=== PATIENT | male | born 1965 | race Caucasian/White ===

== ENCOUNTER 2016-09-22 23:00 | Inpatient (IN) | payer OTHER ==
[~2016-09-22] VITALS: Ht 190.5 cm; Wt 68.7 kg
[~2016-09-22 23:00] MED LIST: BENZ2 PO; HALO10 PO; QUET100 PO; SERT100 PO; SERT50 PO
[2016-09-22 23:11] VITALS: BP 126/83; PULSE 68; RESP 16; TEMP 98.5; O2SAT 99
[2016-09-22 23:31] LABS: AUTOMATED NEUTROPHIL # 7.2 TH/MM3 (1.8-7.7); BASOPHIL % 0.5 % (0.0-2.0); EOSINOPHIL # 0.1 TH/MM3 (0-0.4); EOSINOPHIL % 1.3 % (0.0-4.0); HEMATOCRIT 44.1 % (39.0-51.0); HEMO FLAGS DIFF FINAL; LYMPH % 19.3 % (9.0-44.0); LYMPHOCYTE # 1.9 TH/MM3 (1.0-4.8); MEAN CELL VOLUME 88.9 FL (80.0-100.0); MEAN CORPUSCULAR HEMOGLOBIN 30.4 PG (27.0-34.0); MEAN CORPUSCULAR HGB CONC 34.2 % (32.0-36.0); MONO % 6.7 % (0.0-8.0); NEUT % 72.2 % (16.0-70.0); PLATELET COUNT 244 TH/MM3 (150-450); RED BLOOD COUNT 4.96 MIL/MM3 (4.50-5.90); RED CELL DISTRIBUTION WIDTH 13.5 % (11.6-17.2)
[2016-09-22 23:47] LABS: AMPHETAMINE, URINE NEG (NEG); BARBITURATES, URINE NEG (NEG); COCAINE, URINE POS (NEG)
--- NOTE | 2016-09-22 23:47 | PD ---
HPI Chief Complaint: Psychiatric Symptoms Time Seen by Provider: 23:07 Travel History International Travel<30 days: No Contact w/Intl Traveler<30days: No Traveled to known affect area: No History of Present Illness HPI This is a 51-year-old male who has a history of schizophrenia and bipolar disorder who presents to the emergency department brought in under a Mejia act because he expressed suicidal ideation to the police. He reportedly told them that he wanted to kill himself and that he would cut his wrists. He says in the past he's cut his wrists horizontally but this time he would cut them vertically. He says he has nothing to live for and he's wanted to . He supposed to be on psychiatric medications but hasn't taken them in 3 weeks. He acknowledges using marijuana and cocaine today. PFSH Past Medical History Arthritis: No Asthma: No Autoimmune Disease: No Blood Disorders: No Bipolar Disorder: Yes Anxiety: Yes Depression: Yes Heart Rhythm Problems: No High Cholesterol: Yes (NON COMPLIANT ON MEDS) Chemotherapy: Yes Chest Pain: No Congestive Heart Failure: No Cirrhosis: Yes COPD: Yes Cerebrovascular Accident: No Diminished Hearing: No Endocrine: No Gastrointestinal Disorders: No Genitourinary: No Hypertension: No Immune Disorder: No Implanted Vascular Access Dvce: No Musculoskeletal: No Neurologic: Yes Respiratory: Yes Immunizations Current: Yes Migraines: No Myocardial Infarction: No Schizophrenia: Yes Sleep Apnea: No Influenza Vaccination: No Past Surgical History Abdominal Surgery: No Cardiac Surgery: No Ear Surgery: No Endocrine Surgery: No Eye Surgery: No Genitourinary Surgery: No Neurologic Surgery: No Oral Surgery: No Thoracic Surgery: No Tonsillectomy: Yes Other Surgery: Yes (SKIN GRAFTS TO RT. 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)) Social History Alcohol Use: Yes (WEEKLY ) Tobacco Use: Yes (1 ppd) Substance Use: Yes (crack, marrijana) Allergies-Medications (Allergen,Severity, Reaction): Coded Allergies: Aspirin (Verified Allergy, Severe, Rash, 09/22/16) Codeine (Verified Allergy, Severe, RASH, 09/22/16) Contrast Media (Verified Allergy, Severe, HIVES, 09/22/16) Demerol (Verified Allergy, Severe, RASH, 09/22/16) Motrin (Verified Allergy, Severe, RASH, 09/22/16) Penicillin (Verified Allergy, Severe, RASH, 09/22/16) Iodine (Unverified Allergy, Intermediate, Rash, 09/22/16) Darvocet-N 100 (Verified Allergy, Unknown, 09/22/16) *MDRO Multi-Drug Resistant Organism (Verified Adverse Reaction, Unknown, ) MRSA arm wound 08/2015 Reported Meds & Prescriptions Reported Meds & Active Scripts Active No Active Prescriptions or Reported Medications Review of Systems Except as stated in HPI: all other systems reviewed are Neg Physical Exam Narrative GENERAL: Thin, disheveled SKIN: Focused skin assessment warm and dry. HEAD: Atraumatic. Normocephalic. EYES: Pupils equal and round. No injection or drainage. ENT: Moist mucous membranes NECK: Trachea midline. CARDIOVASCULAR: Regular rate and rhythm. No murmur appreciated. RESPIRATORY: Clear to auscultation. Breath sounds equal bilaterally. GASTROINTESTINAL: Abdomen soft, non-tender, nondistended. MUSCULOSKELETAL: No obvious deformities. NEUROLOGICAL: Awake and alert. No obvious cranial nerve deficits. Moving all extremities. PSYCHIATRIC: Appropriate mood and affect; insight and judgment normal. Data Data Last Documented VS Vital Signs Date Time Temp Pulse Resp B/P Pulse Ox O2 Delivery O2 Flow Rate FiO2 09/22/16 23:11 98.5 68 16 126/83 99 Orders Complete Blood Count With Diff (09/22/16 23:08) Comprehensive Metabolic Panel (09/22/16 23:08) Drug Screen, Random Urine (09/22/16 23:08) Alcohol (Ethanol) (09/22/16 23:08) Labs Laboratory Tests Test 09/22/16 09/22/16 23:19 23:27 White Blood Count 10.0 TH/MM3 Red Blood Count 4.96 MIL/MM3 Hemoglobin 15.1 GM/DL Hematocrit 44.1 % Mean Corpuscular Volume 88.9 FL Mean Corpuscular Hemoglobin 30.4 PG Mean Corpuscular Hemoglobin 34.2 % Concent Red Cell Distribution Width 13.5 % Platelet Count 244 TH/MM3 Mean Platelet Volume 7.1 FL Neutrophils (%) (Auto) 72.2 % Lymphocytes (%) (Auto) 19.3 % Monocytes (%) (Auto) 6.7 % Eosinophils (%) (Auto) 1.3 % Basophils (%) (Auto) 0.5 % Neutrophils # (Auto) 7.2 TH/MM3 Lymphocytes # (Auto) 1.9 TH/MM3 Monocytes # (Auto) 0.7 TH/MM3 Eosinophils # (Auto) 0.1 TH/MM3 Basophils # (Auto) 0.0 TH/MM3 CBC Comment DIFF FINAL Differential Comment Sodium Level 141 MEQ/L Potassium Level 4.0 MEQ/L Chloride Level 106 MEQ/L Carbon Dioxide Level 28.8 MEQ/L Anion Gap 6 MEQ/L Blood Urea Nitrogen 20 MG/DL Creatinine 1.05 MG/DL Estimat Glomerular Filtration 74 ML/MIN Rate Random Glucose 88 MG/DL Calcium Level 8.9 MG/DL Total Bilirubin 0.3 MG/DL Aspartate Amino Transf 21 U/L (AST/SGOT) Alanine Aminotransferase 18 U/L (ALT/SGPT) Alkaline Phosphatase 107 U/L Total Protein 6.9 GM/DL Albumin 3.9 GM/DL Ethyl Alcohol Level LESS THAN 3 MG/DL Urine Opiates Screen NEG Urine Barbiturates Screen NEG Urine Amphetamines Screen NEG Urine Benzodiazepines Screen NEG Urine Cocaine Screen POS Urine Cannabinoids Screen POS MDM Medical Decision Making Medical Screen Exam Complete: Yes Emergency Medical Condition: Yes Interpretation(s) No leukocytosis Electrolytes are reassuring Urine drug screen is positive for cocaine and cannabinoid Alcohol is negative Differential Diagnosis Depression, bipolar disorder, schizoaffective disorder, schizophrenia, substance induced mood disorder Narrative Course This is a 51-year-old male who presents to the emergency department with depression. He reportedly wants to slit his wrists and kill himself. He's been hospitalized here in the past in the setting of bipolar disorder. He has no acute medical complaints. Labs are all reassuring. Patient was cleared for psychiatric evaluation. Scripts No Active Prescriptions or Reported Meds Jacque Santiago MD Sep 22, 2016 23:47
[2016-09-22 23:53] LABS: ALT (GPT) 18 U/L (12-78); ANION GAP 6 MEQ/L (5-15); AST (GOT) 21 U/L (15-37); BICARBONATE 28.8 MEQ/L (21.0-32.0); BLOOD UREA NITROGEN 20 MG/DL (7-18); CHLORIDE 106 MEQ/L (98-107); GLOMERULAR FILTRATION RATE 74 ML/MIN (>89); SODIUM (NA) 141 MEQ/L (136-145)
[2016-09-22 23:56] LABS: ALKALINE PHOSPHATASE 107 U/L (45-117); TOTAL BILIRUBIN ADULT 0.3 MG/DL (0.2-1.0)
[2016-09-23 03:48] VITALS: BP 120/82; PULSE 78; RESP 18; O2SAT 95
[2016-09-23 06:19] VITALS: BP 114/69; PULSE 70; RESP 18; O2SAT 97
[2016-09-23 11:00] VITALS: BP 98/60; PULSE 73; RESP 18
--- NOTE | 2016-09-23 14:14 | PD ---
Physical Exam Date Seen by Provider: Sep 23, 2016 Time Seen by Provider: 14:12 Narrative I was asked to see this 51-year-old male in J pod for reports of "abscesses" under his left axilla and on his right dorsal forearm. Patient has history of MRSA in the past treated with clindamycin and Bactrim DS. Patient states that he been present now for several weeks. He states the left axilla area is tender, and has occasional drainage. He denies fever, chills or other symptoms. Patient has a history of MRSA, allergies to aspirin, codeine, cough rest media, Darvocet, Demerol, iodine, Motrin, and penicillin. Data Data Last Documented VS Vital Signs Date Time Temp Pulse Resp B/P Pulse Ox O2 Delivery O2 Flow Rate FiO2 09/23/16 11:00 73 18 98/60 Room Air 09/23/16 06:19 97 09/22/16 23:11 98.5 Orders Complete Blood Count With Diff (09/22/16 23:08) Comprehensive Metabolic Panel (09/22/16 23:08) Drug Screen, Random Urine (09/22/16 23:08) Alcohol (Ethanol) (09/22/16 23:08) Psych Screen (09/23/16 03:43) Diet Regular Basic (09/23/16 Breakfast) Diet Regular Basic (09/23/16 Lunch) Labs Laboratory Tests Test 09/22/16 09/22/16 23:19 23:27 White Blood Count 10.0 TH/MM3 Red Blood Count 4.96 MIL/MM3 Hemoglobin 15.1 GM/DL Hematocrit 44.1 % Mean Corpuscular Volume 88.9 FL Mean Corpuscular Hemoglobin 30.4 PG Mean Corpuscular Hemoglobin 34.2 % Concent Red Cell Distribution Width 13.5 % Platelet Count 244 TH/MM3 Mean Platelet Volume 7.1 FL Neutrophils (%) (Auto) 72.2 % Lymphocytes (%) (Auto) 19.3 % Monocytes (%) (Auto) 6.7 % Eosinophils (%) (Auto) 1.3 % Basophils (%) (Auto) 0.5 % Neutrophils # (Auto) 7.2 TH/MM3 Lymphocytes # (Auto) 1.9 TH/MM3 Monocytes # (Auto) 0.7 TH/MM3 Eosinophils # (Auto) 0.1 TH/MM3 Basophils # (Auto) 0.0 TH/MM3 CBC Comment DIFF FINAL Differential Comment Sodium Level 141 MEQ/L Potassium Level 4.0 MEQ/L Chloride Level 106 MEQ/L Carbon Dioxide Level 28.8 MEQ/L Anion Gap 6 MEQ/L Blood Urea Nitrogen 20 MG/DL Creatinine 1.05 MG/DL Estimat Glomerular Filtration 74 ML/MIN Rate Random Glucose 88 MG/DL Calcium Level 8.9 MG/DL Total Bilirubin 0.3 MG/DL Aspartate Amino Transf 21 U/L (AST/SGOT) Alanine Aminotransferase 18 U/L (ALT/SGPT) Alkaline Phosphatase 107 U/L Total Protein 6.9 GM/DL Albumin 3.9 GM/DL Ethyl Alcohol Level LESS THAN 3 MG/DL Urine Opiates Screen NEG Urine Barbiturates Screen NEG Urine Amphetamines Screen NEG Urine Benzodiazepines Screen NEG Urine Cocaine Screen POS Urine Cannabinoids Screen POS MDM Medical Record Reviewed: Yes Supervised Visit with ABIGAIL: Yes Differential Diagnosis MRSA. Cellulitis. Abscesses. Lymphangitis. Narrative Course Patient is medically stable at time of exam. Patient has multiple draining abscesses under the left axilla, and 1 small superficial area on the right volar mid forearm consistent with MRSA. Patient is started on doxycycline 100 mg twice a day as well as topical Bactroban twice a day 10 days each. No drainable abscesses are noted at this time. Scripts No Active Prescriptions or Reported Meds Condition: Stable Joshua Dennis Sep 23, 2016 14:14
[2016-09-23] MEDS: DOXYCYCLINE HYCLATE 100 MG TAB PO SCH ×2 (14:35→21:00)
[2016-09-23] MEDS: MUPIROCIN 2% OINT 22 GM TUBE TOPICAL SCH ×2 (17:40→21:08)
[2016-09-23 18:55] VITALS: BP 112/66; PULSE 84; RESP 24; TEMP 98.8; O2SAT 98
[2016-09-23 21:35] VITALS: BP 120/75; PULSE 66; RESP 18; O2SAT 97
[2016-09-24] MEDS ORDERED: diphenhydrAMINE HCL 50 MG/ML VIAL IM PRN (01:00)
[2016-09-24] MEDS ORDERED: diphenhydrAMINE HCL 50 MG CAP PO PRN (01:00)
[2016-09-24] MEDS ORDERED: ALUMINUM/MAGNESIUM/SIMETH 30 ML CUP PO PRN (01:00)
[2016-09-24] MEDS ORDERED: MAGNESIUM HYDROXIDE SUSP 30 ML CUP PO PRN ×2 (01:00→17:15)
[2016-09-24] MEDS ORDERED: ACETAMINOPHEN 325 MG TAB PO PRN ×2 (01:00→17:15)
[2016-09-24 05:41] VITALS: BP 102/67; PULSE 59; RESP 20; TEMP 98; O2SAT 98
[2016-09-24] MEDS: MUPIROCIN 2% OINT 22 GM TUBE TOPICAL SCH ×2 (09:00→21:00)
[2016-09-24] MEDS: NICOTINE 21 MG/24 HR PATCH T-DERMAL SCH (09:14)
[2016-09-24] MEDS: DOXYCYCLINE HYCLATE 100 MG TAB PO SCH ×2 (09:15→22:38)
[2016-09-24 09:28] LABS: ANION GAP 6 MEQ/L (5-15); BICARBONATE 28.7 MEQ/L (21.0-32.0); BLOOD UREA NITROGEN 11 MG/DL (7-18); CHLORIDE 104 MEQ/L (98-107); GLOMERULAR FILTRATION RATE 86 ML/MIN (>89); HDL CHOLESTEROL 48.2 MG/DL (40.0-60.0); LDL CHOLESTEROL 100 MG/DL (0-99); POTASSIUM 3.9 MEQ/L (3.5-5.1); SODIUM (NA) 139 MEQ/L (136-145)
[2016-09-24 13:27] LABS: HEMOGLOBIN A1a 1.1 %; HEMOGLOBIN A1b 0.9 %; HEMOGLOBIN Ao 85.5 %; HEMOGLOBIN F 0.8 %; HEMOGLOBIN LA1C 2.1 %; HEMOGLOBIN P3 3.7 %
--- NOTE | 2016-09-24 14:17 | PD.CONS ---
HPI Service [facility] [address] Hospitalists Consult Requested By Psychiatry team Reason for Consult History of MRSA, left under arm abscess Primary Care Physician No Primary Care Physician Diagnoses: History of Present Illness Patient is a 51-year-old male with primary medical history of COPD, MRSA of the wound, schizophrenia, bipolar disorder who came in to do hospital under Mejia act secondary to suicidal ideation expressed to the safety instruction police officer. As per report, he told the police he wanted to kill himself and that he would cut his wrist. He says in the past his cuts his wrist horizontally but this time he would cut them vertically. States that he has nothing to live for and he wants to . He is now admitted to inpatient psychiatry unit for further evaluation. Consulted for medical management, left axillary abscess. Patient seen today. Reports he continues to feel like hurting himself. States that he has nothing to live for now. He plans to cut his wrist vertically upward. Confirms his previous medical history including COPD and MRSA of the wound on the same location left axillary area. Admits to doing crack cocaine, and cannabis prior to admission. Reports not daily but occasionally. He also states that he has wound on his right forearm. States that he has prescription for inhaler for his COPD but unable to refill because he can't afford it. States that he only gets short of breath with activity especially with walking. Otherwise, denies pain and discomfort. Denies chest pain, palpitations, headaches, dizziness. Denies fevers, chills, n/v/d. Review of Systems Except as stated in HPI: all other systems reviewed are Neg Past Family Social History Allergies: Coded Allergies: Aspirin (Verified Allergy, Severe, Rash, 09/22/16) Codeine (Verified Allergy, Severe, RASH, 09/22/16) Contrast Media (Verified Allergy, Severe, HIVES, 09/22/16) Demerol (Verified Allergy, Severe, RASH, 09/22/16) Motrin (Verified Allergy, Severe, RASH, 09/22/16) Penicillin (Verified Allergy, Severe, RASH, 09/22/16) Iodine (Unverified Allergy, Intermediate, Rash, 09/22/16) Darvocet-N 100 (Verified Allergy, Unknown, 09/22/16) *MDRO Multi-Drug Resistant Organism (Verified Adverse Reaction, Unknown, ) MRSA arm wound 08/2015 Past Medical History COPD MRSA of the wound Anxiety Depression Bipolar disorder Cirrhosis HLD Past Surgical History Right index finger surgery Tonsillectomy Reported Medications None Active Ordered Medications Current Medications Medications (Trade) Dose Ordered Sig/New Route Start Time Stop Time Status Last Admin (Vibratab) 100 mg Q12HR PO 09/23/16 14:15 10/03/16 21:00 09/24/16 09:15 (Bactroban 2% Oint) 1 applic Q12HR TOPICAL 09/23/16 14:15 10/03/16 14:14 09/24/16 09:00 (Atarax) 50 mg Q6H PRN PO 09/24/16 01:00 (Benadryl) 50 mg Q6H PRN PO 09/24/16 01:00 (Benadryl Inj) 50 mg Q6H PRN IM 09/24/16 01:00 (Tylenol) 650 mg Q4H PRN PO 09/24/16 01:00 (Milk Of Magnesia Liq) 30 ml DAILY PRN PO 09/24/16 01:00 (Mag-Al Plus Susp Liq) 30 ml Q6H PRN PO 09/24/16 01:00 (Habitrol 21 Mg Patch.24 Hr) 1 patch DAILY T-DERMAL 09/24/16 09:00 09/24/16 09:14 Miscellaneous Information 1 HS T-DERMAL 09/24/16 21:00 Family History Mother and father both had diabetes, cardiac problems, hypertension, Parkinson's disease Social History Alcohol use occasionally, weekly Current tobacco use 1 pack per day Illicit drug use crack cocaine, cannabis Physical Exam Vital Signs Vital Signs Date Time Temp Pulse Resp B/P Pulse Ox O2 Delivery O2 Flow Rate FiO2 09/24/16 05:41 98.0 59 20 102/67 98 09/23/16 21:35 66 18 120/75 97 09/23/16 18:55 98.8 84 24 112/66 98 Physical Exam GENERAL: This is a thin-appearing, disheveled, unkempt, in no apparent distress. SKIN: Warm and dry. Left axillary area with fistula, abscess, scar, approximately greater than 10 cm area of involvement- hydradenitis suppurativa present. Right forearm open wound. EYES: Pupils equal round and reactive. Extraocular motions intact. No scleral icterus. No injection or drainage. ENT: Nose without bleeding. Throat without erythema. Uvula midline. Airway patent. NECK: Trachea midline. No JVD or lymphadenopathy. Supple. CARDIOVASCULAR: Regular rate and rhythm without murmurs, gallops, or rubs. RESPIRATORY: Diminished bases. Moderate air entry GASTROINTESTINAL: Abdomen soft, non-tender, nondistended. Active times MUSCULOSKELETAL: Extremities without clubbing, cyanosis, or edema. NEUROLOGICAL: Awake and alert. Motor and sensory grossly within normal limits. Normal speech. Laboratory Laboratory Tests Test 09/24/16 08:26 Sodium Level 139 Potassium Level 3.9 Chloride Level 104 Carbon Dioxide Level 28.7 Anion Gap 6 Blood Urea Nitrogen 11 Creatinine 0.92 Estimat Glomerular Filtration 86 Rate Random Glucose 123 Hemoglobin A1c 5.4 Calcium Level 8.9 Triglycerides Level 76 Cholesterol Level 163 LDL Cholesterol 100 HDL Cholesterol 48.2 Cholesterol/HDL Ratio 3.38 Result Diagram: 09/22/16 2319 09/24/16 0826 Assessment and Plan Problem List: (1) Hidradenitis suppurativa of left axilla ICD Code: L73.2 Status: Acute (2) Substance abuse ICD Code: F19.10 Status: Chronic (3) COPD (chronic obstructive pulmonary disease) ICD Code: J44.9 Status: Chronic (4) Tobacco abuse ICD Code: Z72.0 Status: Chronic (5) Suicidal ideation ICD Code: R45.851 Status: Acute Assessment and Plan Patient is a 51-year-old male with primary medical history of COPD, MRSA of the wound, schizophrenia, bipolar disorder who came in to hospital under Mejia act secondary to suicidal ideation expressed to the safety instruction police officer. As per report, he told the police he wanted to kill himself and that he would cut his wrist. He says in the past his cuts his wrist horizontally but this time he would cut them vertically. States that he has nothing to live for and he wants to . He is now admitted to inpatient psychiatry unit for further evaluation. Consulted for medical management, left axillary abscess. Suicidal ideation, schizophrenia, anxiety, depression - managed by psychiatry team - Discussed with nursing patient continues to have thoughts of suicide by cutting his wrist Hydradenitis suppurativa - left axilla Wound abscess - right forearm - Allen stage III - Wound culture, history of MRSA - Doxycycline by mouth continue, ordered for 10 days - usual treatment of hidradenitis takes about 2-3 months. If purulence resolves, may switch to clindamycin gel topical for 3 months. - Mupirocin every 12 apply to wound abscess, left axilla - Keep area clean, wound care consult - Proper hygiene needed COPD, not in exacerbation - DuoNeb's when necessary Tobacco abuse - nicotine patch. Patient counseled Substance abuse - counseled. No beta blockers secondary to crack cocaine use DVT prop ambulatory Written by Fab Woodward, acting as scribe for Dr. Tsang on 09/24/16 at 15:16. All or portions of this note were transcribed by unique [email or web address]. I, Dr. Mary Jo Tsang personally performed the history, physical exam, and medical decision making; and confirmed the accuracy of the information in the transcribed note. Authenticated by Dr. Mary Jo Tsang on 09/24/16 at 15:16. Code Status Full code Discussed Condition With Patient, nursing Fab Carlos Sep 24, 2016 14:17 Mary Jo Tsang MD Sep 24, 2016 16:02
[2016-09-24] MEDS ORDERED: hydrOXYzine HCL 50 MG TAB PO PRN (17:15)
--- NOTE | 2016-09-24 17:32 | HHI.HP ---
Provisional Diagnosis Admission Date Sep 23, 2016 at 19:07 [place] I. Schizoaffective disorder bipolar type of 25.0 polysubstance abuse F 19.10 Certification of Person's Competence To Provide Express and Informed Consent I have personally examined Phillip Guaman Jr John , a person being served at [facility] on, Sep 24, 2016 17:21. Express and informed consent means consent voluntarily given in writing, by a competent person, after sufficient explanation and disclosure of the subject matter involved to enable the person to make a knowing and willful decision without any element of force, fraud, deceit, duress, or other form of constraint or coercion. This person is 18 years of age or older, is not now known to be incompetent to consent to treatment with a guardian advocate, and does not have a health care surrogate or proxy currently making medical treatment decisions. I have found this person to be one of the following: [] Competent to provide express and informed consent, as defined above, for voluntary admission to this facility and is competent to provide express and informed consent for treatment. He/she has the consistent capacity to make well reasoned, willful, and knowing decisions concerning his or her medical or mental health treatment. The person fully and consistently understands the purpose of the admission for examination/placement and is fully capable of personally exercising all rights assured [place] Incompetent to provide express and informed consent to voluntary admission, and this is incompetent to provide express and informed consent to treatment. The person must be transferred to involuntary status and a petition for a guardian advocate filed with the Circuit Court. [x] Refusing to provide express and informed consent to voluntary admission but is competent to provide express and informed consent for treatment. The person must be discharged or transferred to involuntary status. Form shall be completed within 24 hours of a person's arrival at the receiving facility and filed in the clinical record of each person: 1. Admitted on a voluntary basis 2. Permitted to provide express and informed consent to his/her own treatment 3. Allowed to transfer from involuntary to voluntary status 4. Prior to permitting a person to consent to his or her own treatment after having been previously found incompetent to consent to treatment. History of Present Illness Capacity: Lacks Capacity (patient was capacity to agreed to admission, has capacity to agree to medications) HPI Patient is a 51 her white male comes here under Mejia act by the [place] [employer] dated 09/22/16 at 10:44 PM that document reviewed and agreed with essentially stating that the patient stated he was at a loss of what to do 70 suicidal thoughts. Patient seen screened in ED urine toxicology positive for cocaine and marijuana. Of interest the patient is hospitalized here about one year ago for similar complaints was discharged on Zoloft and Haldol at that time. At the present time patient sitting quietly in the [facility] nurse Latoya present throughout session. Patient states is been off his medication perhaps since his last hospitalization. But increased auditory hallucinations of a command nature plan to kill himself. 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 Patient states multiple psychiatric hospitalizations since 13 years old. He has spent extended time a [place] in the past. He denies any physical or sexual abuse. There is a history of mental illness in his family At the present time patient does meet criteria for involuntary psychiatric hospitalization the Mejia act I'll do first opinion requests a second opinion. I do feel he has capacity to make decisions concerning his medication. We'll restart him on his Zoloft to 25 mg daily and is Haldol 10 mg twice a day Review of Systems ROS Limitations: Clinical Condition, Psychotic Constitutional: DENIES: Diaphoretic episodes, Fatigue, Fever, Weight gain, Weight loss, Chills, Dizziness, Change in appetite, Night Sweats Endocrine: DENIES: Heat/cold intolerance, Polydipsia, Polyuria, Polyphagia Eyes: DENIES: Blurred vision, Diplopia, Eye inflammation, Eye pain, Vision loss , Photosensitivity, Double Vision Ears, nose, mouth, throat: DENIES: Tinnitus, Hearing loss, Vertigo, Nasal discharge, Oral lesions, Throat pain, Hoarseness, Ear Pain, Running Nose, Epistaxis, Sinus Pain, Toothache, Odynophagia Respiratory: DENIES: Apneas, Cough, Snoring, Wheezing, Hemoptysis, Sputum production, Shortness of breath Gastrointestinal: DENIES: Abdominal pain, Black stools, Bloody stools, Constipation, Diarrhea, Nausea, Vomiting, Difficulty Swallowing, Anorexia Genitourinary: DENIES: Sexual dysfunction, Urinary frequency, Urinary incontinence, Urgency, Hematuria, Dysuria, Nocturia, Penile Discharge, Testicular Pain, Testicular Swelling Musculoskeletal: DENIES: Joint pain, Muscle aches, Stiffness, Joint Swelling, Back pain, Neck pain Integumentary: DENIES: Abnormal pigmentation, Nail changes, Pruritus, Rash Hematologic/lymphatic: DENIES: Bruising, Lymphadenopathy Immunologic/allergic: DENIES: Eczema, Urticaria Neurologic: DENIES: Abnormal gait, Headache, Localized weakness, Paresthesias, Seizures, Speech Problems, Tremor, Poor Balance Psychiatric: COMPLAINS OF: Depression, Hallucinations, Suicidal Ideation Past Psych History Psychological trauma history Patient denies physical or sexual abuse Violence risk - others (6 mos) Low Violence risk - self (6 mos) High risk suicidality Substance Abuse History Drugs/Alcohol past 12 months Patient infrequent marijuana user occasional cocaine user Past Family Social History Coded Allergies: Aspirin (Verified Allergy, Severe, Rash, 09/22/16) Codeine (Verified Allergy, Severe, RASH, 09/22/16) Contrast Media (Verified Allergy, Severe, HIVES, 09/22/16) Demerol (Verified Allergy, Severe, RASH, 09/22/16) Motrin (Verified Allergy, Severe, RASH, 09/22/16) Penicillin (Verified Allergy, Severe, RASH, 09/22/16) Iodine (Unverified Allergy, Intermediate, Rash, 09/22/16) Darvocet-N 100 (Verified Allergy, Unknown, 09/22/16) *MDRO Multi-Drug Resistant Organism (Verified Adverse Reaction, Unknown, ) MRSA arm wound 08/2015 No Active Prescriptions or Reported Meds Current Medications Medications (Trade) Dose Ordered Sig/New Route Start Time Stop Time Status Last Admin (Vibratab) 100 mg Q12HR PO 09/23/16 14:15 10/03/16 21:00 09/24/16 09:15 (Bactroban 2% Oint) 1 applic Q12HR TOPICAL 09/23/16 14:15 10/03/16 14:14 09/24/16 09:00 (Atarax) 50 mg Q6H PRN PO 09/24/16 01:00 (Benadryl) 50 mg Q6H PRN PO 09/24/16 01:00 (Benadryl Inj) 50 mg Q6H PRN IM 09/24/16 01:00 (Tylenol) 650 mg Q4H PRN PO 09/24/16 01:00 (Milk Of Magnesia Liq) 30 ml DAILY PRN PO 09/24/16 01:00 (Mag-Al Plus Susp Liq) 30 ml Q6H PRN PO 09/24/16 01:00 (Habitrol 21 Mg Patch.24 Hr) 1 patch DAILY T-DERMAL 09/24/16 09:00 09/24/16 09:14 Miscellaneous Information 1 HS T-DERMAL 09/24/16 21:00 Family History Patient denies mental health for addictions and family Social History Patient lives with a roommate Patient's Strengths (min. 2) Patient verbal irritable axis health care Physical Exam Patient seen screened in ED exam reviewed and agreed with vital signs blood pressure 102/67 pulse 59 respirations 20 Vital Signs Vital Signs Date Time Temp Pulse Resp B/P Pulse Ox O2 Delivery O2 Flow Rate FiO2 09/24/16 05:41 98.0 59 20 102/67 98 09/23/16 11:00 Room Air Mental Status Examination Alert fairly well oriented though somewhat confused and confusing with his history disheveled white male with poor eye contact, somewhat guarded also Appearance Disheveled Speech: Slow, Other (markedly disorganized) Orientation: Person, Place, Date Memory: Impaired (describe) Thought Process: Loose Association Thought Content: Paranoid Language [place] [employer] Poor Hallucination Type: Auditory (command threatening) Attention and Concentration: Other (poor) Suicidal Ideation: Yes (high risk suicidality) Previous Suicide Attempts: Yes Homicidal Ideation: No Previous Homicide Attempts: No Insight: Poor Judgment: Poor Affect: Other (decreased range intensity) Mood: Sad Motor Activity: Normal gait Assessment & Plan Problem List: (1) Schizoaffective disorder ICD Code: F25.9 (2) Polysubstance abuse ICD Code: F19.10 Assessment & Plan Estimated LOS 537 days patient meets criteria for involuntary psychiatric hospitalization I'll do first opinion requests a second opinion. I feel he is a capacity to sign for his medication. We'll start him on medication as mentioned above. He complains of very high risk for suicide attempt Discharge Planning To be determined Request HC Surrog/Guard Advoc?: No Problem Qualifiers (1) Schizoaffective disorder: Qualified Code: F25.0 - Schizoaffective disorder, bipolar type Micheal Montgomery MD Sep 24, 2016 17:32
[2016-09-24 19:38] VITALS: BP 109/73; PULSE 58; RESP 20; TEMP 98; O2SAT 97
[2016-09-24] MEDS: REMOVE OLD NICOTINE PATCH T-DERMAL SCH (21:00)
[2016-09-24] MEDS: hydrOXYzine HCL 50 MG TAB PO PRN (22:38)
[2016-09-24] MEDS: HALOPERIDOL 5 MG TAB PO SCH (22:38)
[2016-09-25 06:12] VITALS: BP 117/68; PULSE 86; RESP 18; TEMP 97.8; O2SAT 95
[2016-09-25] MEDS: MUPIROCIN 2% OINT 22 GM TUBE TOPICAL SCH ×2 (09:00→21:00)
[2016-09-25] MEDS: NICOTINE 21 MG/24 HR PATCH T-DERMAL SCH (09:00)
[2016-09-25] MEDS: DOXYCYCLINE HYCLATE 100 MG TAB PO SCH ×2 (09:13→21:48)
[2016-09-25] MEDS: HALOPERIDOL 5 MG TAB PO SCH ×2 (09:13→21:48)
[2016-09-25] MEDS: SERTRALINE HCL 50 MG TAB PO SCH (09:13)
--- NOTE | 2016-09-25 16:39 | HHI.PYPN ---
Subjective Remarks This is a request for second opinion for Dr. Montgomery. Patient was seen, admission records reviewed. Patient is irritable and disheveled. Possible malingering. Admits to suicidal ideation and has been going on for years with plan of cutting his wrist. Does not endorse any suicide attempts. Hallucinations are improving but tell him to hurt himself. Patient denies any intent of doing so Objective Alert: Yes [place]: Person, Place, Situation Mood: Angry Affect: Other (irritable) Memory Intact: Comment (not tested) Hallucinations: Auditory (getting better, to hurt himself) Delusions: No Delusion Type: Other (guarded) Suicidal: Ideation (denies) Homicidal: Ideation (denies) Insight/Judgment Poor Labs Date/Time Procedure Status Source Growth 09/24/16 14:00 Gram Stain - Final Resulted Wound Other 09/24/16 14:00 Wound Culture - Preliminary Resulted Wound Other Vitals/IOs Vital Signs Date Time Temp Pulse Resp B/P Pulse Ox O2 Delivery O2 Flow Rate FiO2 09/25/16 06:12 97.8 86 18 117/68 95 09/23/16 11:00 Room Air Assessment & Plan Problem List: (1) Schizoaffective disorder ICD Code: F25.9 (2) Polysubstance abuse ICD Code: F19.10 Assessment & Plan I agree with first opinion to continue petition. Criteria include suicidal ideation and hallucinations Justification for Cont. Inpt. Patient will decompensate in a less restrictive setting Request HC Surrog/Guard Advoc?: No Problem Qualifiers (1) Schizoaffective disorder: Qualified Code: F25.0 - Schizoaffective disorder, bipolar type Vijay Ruff DO Sep 25, 2016 16:39
[2016-09-25] MEDS: REMOVE OLD NICOTINE PATCH T-DERMAL SCH (21:00)
[2016-09-25] MEDS: hydrOXYzine HCL 50 MG TAB PO PRN (21:48)
[2016-09-26 06:25] VITALS: BP 102/58; PULSE 62; RESP 18; TEMP 97.9; O2SAT 96
[2016-09-26] MEDS: HALOPERIDOL 5 MG TAB PO SCH ×2 (09:00→20:06)
[2016-09-26] MEDS: MUPIROCIN 2% OINT 22 GM TUBE TOPICAL SCH ×2 (09:00→20:06)
[2016-09-26] MEDS: SERTRALINE HCL 50 MG TAB PO SCH (09:00)
[2016-09-26] MEDS: DOXYCYCLINE HYCLATE 100 MG TAB PO SCH ×2 (09:00→20:05)
[2016-09-26] MEDS: NICOTINE 21 MG/24 HR PATCH T-DERMAL SCH (09:00)
--- NOTE | 2016-09-26 14:13 | HHI.PR ---
Subjective Remarks Follow up for Hidradenitis suppurative of left axilla and right forearm, schizophrenia, substance abuse and tobacco abuse. Patient was seen and examined. Informed patient that wound cultures were negative. He denies any chest pain, sob, fever or chills. Also denies any pain, headaches or dizziness. Objective Vitals Vital Signs Date Time Temp Pulse Resp B/P Pulse Ox O2 Delivery O2 Flow Rate FiO2 09/26/16 06:25 97.9 62 18 102/58 96 Result Diagram: 09/22/16 2319 09/24/16 0826 Objective Remarks GENERAL: This is a thin-appearing, unkempt patient, in no apparent distress. SKIN: Warm and dry. Left axillary area with fistula, abscess, scar, approximately greater than 10 cm area of involvement- hydradenitis suppurativa present. Slight erythema. Right forearm open wound. EYES: Pupils equal round and reactive. Extraocular motions intact. No scleral icterus. No injection or drainage. ENT: Nose without bleeding. Throat without erythema. Uvula midline. Airway patent. NECK: Trachea midline. No JVD or lymphadenopathy. Supple. CARDIOVASCULAR: Regular rate and rhythm without murmurs, gallops, or rubs. RESPIRATORY: Diminished bases. Moderate air entry GASTROINTESTINAL: Abdomen soft, non-tender, nondistended. Active times MUSCULOSKELETAL: Extremities without clubbing, cyanosis, or edema. NEUROLOGICAL: Awake and alert. Motor and sensory grossly within normal limits. Normal speech. Medications and IVs Current Medications Medications (Trade) Dose Ordered Sig/New Route Start Time Stop Time Status Last Admin (Vibratab) 100 mg Q12HR PO 09/23/16 14:15 10/03/16 21:00 09/26/16 09:00 (Bactroban 2% Oint) 1 applic Q12HR TOPICAL 09/23/16 14:15 10/03/16 14:14 09/26/16 09:00 (Atarax) 50 mg Q6H PRN PO 09/24/16 01:00 09/25/16 21:48 (Benadryl) 50 mg Q6H PRN PO 09/24/16 01:00 (Benadryl Inj) 50 mg Q6H PRN IM 09/24/16 01:00 (Tylenol) 650 mg Q4H PRN PO 09/24/16 01:00 (Milk Of Magnesia Liq) 30 ml DAILY PRN PO 09/24/16 01:00 (Mag-Al Plus Susp Liq) 30 ml Q6H PRN PO 09/24/16 01:00 (Habitrol 21 Mg Patch.24 Hr) 1 patch DAILY T-DERMAL 09/24/16 09:00 09/24/16 09:14 Miscellaneous Information 1 HS T-DERMAL 09/24/16 21:00 (Benadryl) 50 mg HS PRN PO 09/24/16 17:15 (Tylenol) 650 mg Q4H PRN PO 09/24/16 17:15 (Milk Of Magnesia Liq) 30 ml DAILY PRN PO 09/24/16 17:15 (Mag-Al Plus Susp Liq) 30 ml Q6H PRN PO 09/24/16 17:15 (Atarax) 50 mg Q6H PRN PO 09/24/16 17:15 (Zoloft) 25 mg DAILY PO 09/25/16 09:00 09/26/16 09:00 (Haldol) 5 mg BID PO 09/24/16 21:00 09/26/16 09:00 Urinary Catheter: No Vascular Central Line Catheter: No A/P Problem List: (1) Suicidal ideation ICD Code: R45.851 Status: Acute (2) Hidradenitis suppurativa of left axilla ICD Code: L73.2 Status: Acute (3) Substance abuse ICD Code: F19.10 Status: Chronic (4) COPD (chronic obstructive pulmonary disease) ICD Code: J44.9 Status: Chronic (5) Tobacco abuse ICD Code: Z72.0 Status: Chronic Assessment and Plan Patient is a 51-year-old male with primary medical history of COPD, MRSA of the wound, schizophrenia, bipolar disorder who came in to do hospital under Mejia act secondary to suicidal ideation expressed to the safety instruction police officer. As per report, he told the police he wanted to kill himself and that he would cut his wrist. He says in the past his cuts his wrist horizontally but this time he would cut them vertically. States that he has nothing to live for and he wants to . He is now admitted to inpatient psychiatry unit for further evaluation. We are following for medical management of left axillary hidradenitis. Suicidal ideation, hx of schizophrenia, anxiety, depression - managed by psychiatry team Hydradenitis suppurativa - left axilla Wound abscess - right forearm shows normal dana, No MRSA - Allen stage III - Cont Doxycycline PO for 10 days - usual treatment of hidradenitis takes about 2-3 months. If purulence resolves, may switch to clindamycin gel topical for 3 months. - Mupirocin every 12 apply to wound abscess, left axilla - Keep area clean, Cont proper hygiene to prevent exacerbation COPD, not in exacerbation, chronic - DuoNeb's prn Tobacco abuse, Chronic - Cont nicotine patch. -Patient counseled, encouraged to quit Substance abuse, Chronic - Counseled, Encouraged to quit. - No beta blockers secondary to crack cocaine use DVT prophylaxis: Encourage ambulation Discussed with Patient and Nursing staff Written by MARCELO Morales acting as scribe for Dr. Tsang on 09/26/16 at 11: 25. All or portions of this note were transcribed by Arjun Qiu. I, Dr. Mary Jo Tsang personally performed the history, physical exam, and medical decision making; and confirmed the accuracy of the information in the transcribed note. Authenticated by Dr. Mary Jo Tsang on 09/26/16 at 11:25. Discharge Planning Per psychiatry Mary Díaz Sep 26, 2016 14:13 Mary Jo Tsang MD Sep 26, 2016 16:08
--- NOTE | 2016-09-26 16:17 | HHI.PYPN ---
Subjective Remarks Patient discussed with treatment team, chart reviewed, patient seen in his room while in isolation for MRSA. Patient laying in bed irritable vigilant somewhat angry with me. Is compliant with medications he was somewhat ambivalent and vague about suicidality initially stating he was not suicidal "right now". He does deny voices at this time. For now continue treatment Review of Systems Except as stated in HPI: all other systems reviewed are Neg Objective Alert: Yes [place]: Person, Place, Situation Mood: Angry Affect: Other (irritable) Memory Intact: Comment (not tested) Hallucinations: Auditory (denies at this time) Delusions: No Delusion Type: Other (guarded) Suicidal: Ideation (today vague and ambivalent) Homicidal: Ideation (denies) Insight/Judgment Poor Labs Date/Time Procedure Status Source Growth 09/24/16 14:00 Gram Stain - Final Resulted Wound Other 09/24/16 14:00 Wound Culture - Preliminary Resulted S. Aureus Mrsa Vitals/IOs Vital Signs Date Time Temp Pulse Resp B/P Pulse Ox O2 Delivery O2 Flow Rate FiO2 09/26/16 06:25 97.9 62 18 102/58 96 09/23/16 11:00 Room Air Assessment & Plan Problem List: (1) Schizoaffective disorder ICD Code: F25.9 (2) Polysubstance abuse ICD Code: F19.10 Assessment & Plan Estimated LOS: days patient remains isolative coping with isolation protocols. Remains in bed irritable angry with the significant degree of manipulation noted with them. Justification for Cont. Inpt. At this time patient will decompensate if placed on lower level of care Discharge Planning To be determined Request HC Surrog/Guard Advoc?: No Problem Qualifiers (1) Schizoaffective disorder: Qualified Code: F25.0 - Schizoaffective disorder, bipolar type Micheal Montgomery MD Sep 26, 2016 16:17
[2016-09-26 18:24] VITALS: BP 102/68; PULSE 99; RESP 16; TEMP 98.9; O2SAT 98
[2016-09-26] MEDS: diphenhydrAMINE HCL 50 MG CAP PO PRN (20:06)
[2016-09-26] MEDS: REMOVE OLD NICOTINE PATCH T-DERMAL SCH (20:08)
[2016-09-27 05:24] VITALS: BP 106/70; PULSE 64; RESP 18; TEMP 97.8; O2SAT 96
[2016-09-27] MEDS: DOXYCYCLINE HYCLATE 100 MG TAB PO SCH ×2 (09:00→20:08)
[2016-09-27] MEDS: NICOTINE 21 MG/24 HR PATCH T-DERMAL SCH (09:00)
[2016-09-27] MEDS: HALOPERIDOL 5 MG TAB PO SCH (09:00)
[2016-09-27] MEDS: SERTRALINE HCL 50 MG TAB PO SCH (09:00)
[2016-09-27] MEDS: MUPIROCIN 2% OINT 22 GM TUBE TOPICAL SCH ×2 (09:00→20:08)
--- NOTE | 2016-09-27 13:07 | HHI.PYPN ---
Subjective Remarks Patient seen in his room with nurse Ambar, patient somewhat more alert and focused calmer with me. Though continues to complain of depression, insomnia with nightmares, he denies auditory hallucinations at this time, is somewhat vague about suicidal ideation, implying that was worse last night then today. For now will increase Zoloft to 50 mg daily, increase Haldol to 5 mg a.m. 10 mg at bedtime Review of Systems Except as stated in HPI: all other systems reviewed are Neg Objective Alert: Yes [place]: Person, Place, Situation Mood: Angry Affect: Other (irritable) Memory Intact: Comment (not tested) Hallucinations: Auditory (denies at this time) Delusions: No Delusion Type: Other (guarded) Suicidal: Ideation (today vague and ambivalent) Homicidal: Ideation (denies) Insight/Judgment Poor Labs Date/Time Procedure Status Source Growth 09/24/16 14:00 Gram Stain - Final Complete Wound Other 09/24/16 14:00 Wound Culture - Final Complete S. Aureus Mrsa Vitals/IOs Vital Signs Date Time Temp Pulse Resp B/P Pulse Ox O2 Delivery O2 Flow Rate FiO2 09/27/16 05:24 97.8 64 18 106/70 96 09/23/16 11:00 Room Air Intake and Output 09/26/16 09/26/16 09/27/16 08:00 16:00 00:00 Intake Total 480 ml Balance 480 ml Assessment & Plan Problem List: (1) Schizoaffective disorder ICD Code: F25.9 (2) Polysubstance abuse ICD Code: F19.10 Assessment & Plan Estimated LOS: days patient is depression persists along with his mild paranoia. He is compliant with medications. Now continue treatment Justification for Cont. Inpt. At this time patient will decompensate placed on the lower level of care Discharge Planning To be determined Request HC Surrog/Guard Advoc?: No Problem Qualifiers (1) Schizoaffective disorder: Qualified Code: F25.0 - Schizoaffective disorder, bipolar type Micheal Montgomery MD Sep 27, 2016 13:07
[2016-09-27] MEDS: diphenhydrAMINE HCL 50 MG CAP PO PRN (20:08)
[2016-09-27] MEDS: REMOVE OLD NICOTINE PATCH T-DERMAL SCH (20:09)
[2016-09-27] MEDS ORDERED: HALOPERIDOL 10 MG TAB PO SCH (21:00)
[2016-09-28 05:33] VITALS: BP 110/71; PULSE 64; RESP 18; TEMP 98.2; O2SAT 98
[2016-09-28] MEDS: DOXYCYCLINE HYCLATE 100 MG TAB PO SCH ×2 (08:59→20:39)
[2016-09-28] MEDS ORDERED: HALOPERIDOL 5 MG TAB PO SCH (09:00)
[2016-09-28] MEDS: SERTRALINE HCL 50 MG TAB PO SCH (09:00)
[2016-09-28] MEDS: NICOTINE 21 MG/24 HR PATCH T-DERMAL SCH (09:00)
[2016-09-28] MEDS: MUPIROCIN 2% OINT 22 GM TUBE TOPICAL SCH ×2 (09:00→20:49)
--- NOTE | 2016-09-28 11:20 | HHI.PR ---
Subjective Remarks Follow up for Hidradenitis suppurative of left axilla and MRSA wound on right forearm, schizophrenia, substance abuse and tobacco abuse. Patient was seen and examined. Informed patient that wound cultures did grow MRSA, and that the antibiotics he is taking will cover MRSA. He denies any chest pain, sob, fever or chills. Also denies any pain, headaches or dizziness. Objective Vitals Vital Signs Date Time Temp Pulse Resp B/P Pulse Ox O2 Delivery O2 Flow Rate FiO2 09/28/16 05:33 98.2 64 18 110/71 98 Result Diagram: 09/24/16 0826 Objective Remarks GENERAL: This is a thin-appearing, unkempt patient, in no apparent distress. SKIN: Warm and dry. Left axillary area with fistula, abscess, scar, approximately greater than 10 cm area of involvement- hydradenitis suppurativa present. Slight erythema. Right forearm open wound. EYES: Pupils equal round and reactive. Extraocular motions intact. No scleral icterus. No injection or drainage. ENT: Nose without bleeding. Throat without erythema. Uvula midline. Airway patent. NECK: Trachea midline. No JVD or lymphadenopathy. Supple. CARDIOVASCULAR: Regular rate and rhythm without murmurs, gallops, or rubs. RESPIRATORY: Diminished bases. Moderate air entry GASTROINTESTINAL: Abdomen soft, non-tender, nondistended. Active times MUSCULOSKELETAL: Extremities without clubbing, cyanosis, or edema. NEUROLOGICAL: Awake and alert. Motor and sensory grossly within normal limits. Normal speech. A/P Problem List: (1) Suicidal ideation ICD Code: R45.851 Status: Acute (2) Hidradenitis suppurativa of left axilla ICD Code: L73.2 Status: Acute (3) Substance abuse ICD Code: F19.10 Status: Chronic (4) COPD (chronic obstructive pulmonary disease) ICD Code: J44.9 Status: Chronic (5) Tobacco abuse ICD Code: Z72.0 Status: Chronic (6) MRSA (methicillin resistant staph aureus) culture positive ICD Code: Z22.322 Status: Acute Assessment and Plan Patient is a 51-year-old male with primary medical history of COPD, MRSA of the wound, schizophrenia, bipolar disorder who came in to do hospital under [place] act secondary to suicidal ideation expressed to the policeman. As per report, he told the police he wanted to kill himself and that he would cut his wrist. He says in the past his cuts his wrist horizontally but this time he would cut them vertically. States that he has nothing to live for and he wants to . He is now admitted to inpatient psychiatry unit for further evaluation. We are following for medical management of left axillary hidradenitis. Suicidal ideation, hx of schizophrenia, anxiety, depression - managed by psychiatry team Hydradenitis suppurativa - left axilla Wound abscess - right forearm shows normal dana, No MRSA - Allen stage III - Cont Doxycycline PO for 10 days - usual treatment of hidradenitis takes about 2-3 months. If purulence resolves, may switch to clindamycin gel topical for 3 months. - Mupirocin every 12 apply to wound abscess, left axilla - Keep area clean, Cont proper hygiene to prevent exacerbation MRSA infection to right forearm wound -Cont wound care and Doxycycline until 10/03/16 -Contact isolation COPD, not in exacerbation, chronic - DuoNeb's prn Tobacco abuse, Chronic - Cont nicotine patch. -Patient counseled, encouraged to quit Substance abuse, Chronic - Counseled, Encouraged to quit. - No beta blockers secondary to crack cocaine use DVT prophylaxis: Encourage ambulation Discussed with Patient, Nursing staff, and Dr. Tsang We will sign off for now, please reconsult if needed. Discharge Planning Per psychiatry Mary Díaz Sep 28, 2016 11:19 Mary Jo Tsang MD Oct 04, 2016 13:51
--- NOTE | 2016-09-28 12:39 | HHI.PYPN ---
Subjective Remarks Patient seen in [facility] with nurse Apryl chart reviewed,, patient out of room for first time sitting in chair in [place]. Patient somewhat calmer with me though continues vigilant. When asked who was feeling he became somewhat ambivalent. When asked about suicidality he denied suicidality today but was vague about yesterday. When asked about voices he initially said he was not hearing any voices but then stated he did not like the Haldol. When questioned further it appears he change his mind and said the auditory hallucinations were persisting of that Haldol was not helping. When asked about prior medications that may have been helpful the listed multiple medications but since Seroquel was the best. We will discontinue the Haldol. Patient Seroquel 25 mg 9 AM and 4 PM and 100 mg at bedtime a do have to question if there is some degree of manipulation and perhaps malingering with this gentleman. Review of Systems Except as stated in HPI: all other systems reviewed are Neg Objective Alert: Yes [place]: Person, Place, Situation Mood: Angry Affect: Other (irritable) Memory Intact: Comment (not tested) Hallucinations: Auditory (vague and contradictory today) Delusions: No Delusion Type: Other (guarded) Suicidal: Ideation (today vague and ambivalent) Homicidal: Ideation (denies) Insight/Judgment Poor Labs Date/Time Procedure Status Source Growth 09/24/16 14:00 Gram Stain - Final Complete Wound Other 09/24/16 14:00 Wound Culture - Final Complete S. Aureus Mrsa Vitals/IOs Vital Signs Date Time Temp Pulse Resp B/P Pulse Ox O2 Delivery O2 Flow Rate FiO2 09/28/16 05:33 98.2 64 18 110/71 98 Assessment & Plan Problem List: (1) Schizoaffective disorder ICD Code: F25.9 (2) Polysubstance abuse ICD Code: F19.10 Assessment & Plan Estimated LOS: days patient showing what may be some manipulation, is vague and ambivalent related to both suicidality and voices. See medication adjustment above Justification for Cont. Inpt. At this time patient will decompensate placed on a lower level of care Discharge Planning To be determined Request HC Surrog/Guard Advoc?: No Problem Qualifiers (1) Schizoaffective disorder: Qualified Code: F25.0 - Schizoaffective disorder, bipolar type Micheal Montgomery MD Sep 28, 2016 12:39
[2016-09-28 16:00] VITALS: BP 138/87; PULSE 61; RESP 16; TEMP 98; O2SAT 98
[2016-09-28] MEDS: QUEtiapine FUMARATE 25 MG TAB PO SCH (16:11)
[2016-09-28] MEDS: QUEtiapine FUMARATE 100 MG TAB PO SCH (20:39)
[2016-09-28] MEDS: REMOVE OLD NICOTINE PATCH T-DERMAL SCH (20:49)
[2016-09-29 05:00] VITALS: BP 110/63; PULSE 58; RESP 16; TEMP 97.9; O2SAT 97
[2016-09-29] MEDS: MUPIROCIN 2% OINT 22 GM TUBE TOPICAL SCH ×2 (09:00→21:00)
[2016-09-29] MEDS: NICOTINE 21 MG/24 HR PATCH T-DERMAL SCH (09:00)
[2016-09-29] MEDS: DOXYCYCLINE HYCLATE 100 MG TAB PO SCH ×2 (09:40→21:00)
[2016-09-29] MEDS: QUEtiapine FUMARATE 25 MG TAB PO SCH ×2 (09:40→16:12)
[2016-09-29] MEDS: SERTRALINE HCL 50 MG TAB PO SCH (09:40)
--- NOTE | 2016-09-29 10:39 | HHI.PYPN ---
Subjective Remarks Patient seen in room with nurse Francheska, chart reviewed, patient somewhat calmer though continues vigilant it is softer, there is better eye contact. His affect is showing some decrease range of motion intensity. Denies suicidality of voices this morning we'll continue somewhat ambiguous. For now continue treatment Review of Systems Except as stated in HPI: all other systems reviewed are Neg Objective Alert: Yes [place]: Person, Place, Situation Mood: Angry Affect: Other (irritable) Memory Intact: Comment (not tested) Hallucinations: Auditory (vague and contradictory today) Delusions: No Delusion Type: Other (guarded) Suicidal: Ideation (today vague and ambivalent) Homicidal: Ideation (denies) Insight/Judgment Poor Labs Date/Time Procedure Status Source Growth 09/24/16 14:00 Gram Stain - Final Complete Wound Other 09/24/16 14:00 Wound Culture - Final Complete S. Aureus Mrsa Vitals/IOs Vital Signs Date Time Temp Pulse Resp B/P Pulse Ox O2 Delivery O2 Flow Rate FiO2 09/29/16 05:00 97.9 58 16 110/63 97 Assessment & Plan Problem List: (1) Schizoaffective disorder ICD Code: F25.9 (2) Polysubstance abuse ICD Code: F19.10 Assessment & Plan Estimated LOS: days patient's affect is softening remains somewhat depressed and irritable though his mood is improving also. Compliant medications. For now continue treatment Justification for Cont. Inpt. At this time patient will decompensate if placed on the lower level of care Discharge Planning To be determined Request HC Surrog/Guard Advoc?: No Problem Qualifiers (1) Schizoaffective disorder: Qualified Code: F25.0 - Schizoaffective disorder, bipolar type Micheal Montgomery MD Sep 29, 2016 10:39
[2016-09-29] MEDS: QUEtiapine FUMARATE 100 MG TAB PO SCH (21:00)
[2016-09-29] MEDS: REMOVE OLD NICOTINE PATCH T-DERMAL SCH (21:00)
[2016-09-30 05:02] VITALS: BP 98/62; PULSE 69; RESP 18; TEMP 98; O2SAT 97
[2016-09-30] MEDS: NICOTINE 21 MG/24 HR PATCH T-DERMAL SCH (09:00)
[2016-09-30] MEDS: MUPIROCIN 2% OINT 22 GM TUBE TOPICAL SCH ×2 (09:00→20:19)
[2016-09-30] MEDS: SERTRALINE HCL 50 MG TAB PO SCH (09:28)
[2016-09-30] MEDS: QUEtiapine FUMARATE 25 MG TAB PO SCH ×2 (09:28→16:21)
[2016-09-30] MEDS: DOXYCYCLINE HYCLATE 100 MG TAB PO SCH ×2 (09:28→20:19)
--- NOTE | 2016-09-30 10:51 | HHI.PYPN ---
Subjective Remarks Nonverbal with this physician this morning. Patient appears to be more withdrawn and reclusive. Markedly blunted affect. Review of Systems ROS Limitations: Clinical Condition Objective Alert: Yes [place]: Person, Place, Situation Mood: Angry Affect: Other (irritable) Memory Intact: Comment (not tested) Hallucinations: Auditory (vague and contradictory today) Delusions: No Delusion Type: Other (guarded) Suicidal: Ideation (today vague and ambivalent) Homicidal: Ideation (denies) Insight/Judgment Impaired Vitals/IOs Vital Signs Date Time Temp Pulse Resp B/P Pulse Ox O2 Delivery O2 Flow Rate FiO2 09/30/16 05:02 98.0 69 18 98/62 97 Assessment & Plan Problem List: (1) Schizoaffective disorder ICD Code: F25.9 (2) Polysubstance abuse ICD Code: F19.10 Assessment & Plan Estimated LOS: 7 days patient continues to demonstrate significant difficulty interacting with others. It is hoped with more time on antipsychotic medication that his cognition will improve as he is no longer as preoccupied with internal stimuli. Justification for Cont. Inpt. Psychotic and unable to care for self. Request HC Surrog/Guard Advoc?: No Problem Qualifiers (1) Schizoaffective disorder: Qualified Code: F25.0 - Schizoaffective disorder, bipolar type Blue Orozco MD Sep 30, 2016 10:51
[2016-09-30] MEDS: hydrOXYzine HCL 50 MG TAB PO PRN (14:44)
[2016-09-30] MEDS: QUEtiapine FUMARATE 100 MG TAB PO SCH (20:19)
[2016-09-30] MEDS: REMOVE OLD NICOTINE PATCH T-DERMAL SCH (20:19)
[2016-09-30] MEDS: diphenhydrAMINE HCL 50 MG CAP PO PRN (20:48)
[2016-10-01 05:37] VITALS: BP 107/70; PULSE 67; RESP 18; TEMP 97.9; O2SAT 98
[2016-10-01] MEDS: SERTRALINE HCL 50 MG TAB PO SCH (08:59)
[2016-10-01] MEDS: NICOTINE 21 MG/24 HR PATCH T-DERMAL SCH (08:59)
[2016-10-01] MEDS: DOXYCYCLINE HYCLATE 100 MG TAB PO SCH ×2 (08:59→20:52)
[2016-10-01] MEDS: QUEtiapine FUMARATE 25 MG TAB PO SCH ×2 (08:59→15:48)
[2016-10-01] MEDS: MUPIROCIN 2% OINT 22 GM TUBE TOPICAL SCH ×2 (09:00→20:52)
[2016-10-01 18:19] VITALS: BP 103/63; PULSE 70; RESP 16; TEMP 99.3; O2SAT 97
--- NOTE | 2016-10-01 20:44 | HHI.PYPN ---
Subjective Remarks Pt seen and discussed with staff. He remains isolative and seclusive on unit. He is compliant with medications. He reports that he is "doing all right" He conducts interview with face hidden. No medication side effects. He denies SI/ HI. Objective Alert: Yes [place]: Person, Place, Situation Mood: Other (irritable) Affect: Flat Memory Intact: Comment (no gross deficits) Hallucinations: Other (appears to be responding to internal stimuli) Delusions: No Delusion Type: Other (guarded) Suicidal: Ideation (denies) Homicidal: Ideation (denies) Insight/Judgment poor Vitals/IOs Vital Signs Date Time Temp Pulse Resp B/P Pulse Ox O2 Delivery O2 Flow Rate FiO2 10/01/16 18:19 99.3 70 16 103/63 97 Assessment & Plan Problem List: (1) Schizoaffective disorder ICD Code: F25.9 (2) Polysubstance abuse ICD Code: F19.10 Assessment & Plan Continue current tx plan. Estimated LOS: days Justification for Cont. Inpt. impairments in self care and reality testing Request HC Surrog/Guard Advoc?: No Problem Qualifiers (1) Schizoaffective disorder: Qualified Code: F25.0 - Schizoaffective disorder, bipolar type Marcy Davis MD Oct 01, 2016 20:44
[2016-10-01] MEDS: REMOVE OLD NICOTINE PATCH T-DERMAL SCH (20:52)
[2016-10-01] MEDS: QUEtiapine FUMARATE 100 MG TAB PO SCH (20:52)
[2016-10-01] MEDS: diphenhydrAMINE HCL 50 MG CAP PO PRN (20:52)
[2016-10-02] MEDS: DOXYCYCLINE HYCLATE 100 MG TAB PO SCH ×2 (08:29→20:52)
[2016-10-02] MEDS: SERTRALINE HCL 50 MG TAB PO SCH (08:29)
[2016-10-02] MEDS: QUEtiapine FUMARATE 25 MG TAB PO SCH ×2 (08:29→15:46)
[2016-10-02] MEDS: NICOTINE 21 MG/24 HR PATCH T-DERMAL SCH (08:30)
[2016-10-02] MEDS: MUPIROCIN 2% OINT 22 GM TUBE TOPICAL SCH ×2 (08:30→20:52)
[2016-10-02] MEDS: QUEtiapine FUMARATE 100 MG TAB PO SCH (20:52)
[2016-10-02] MEDS: hydrOXYzine HCL 50 MG TAB PO PRN (20:52)
[2016-10-02] MEDS: REMOVE OLD NICOTINE PATCH T-DERMAL SCH (21:00)
--- NOTE | 2016-10-02 22:18 | HHI.PYPN ---
Subjective Remarks Pt seen and discussed with staff. Pt has been out of room and more present in milieu. He appears less internally stimulated today. No agitation/aggression. Compliant wiht medications and tolerating without side effects. Objective Alert: Yes [place]: Person, Place, Situation Mood: Other (irritable) Affect: Flat Memory Intact: Comment (no gross deficits) Hallucinations: Other (less internal stimulation) Delusions: No Delusion Type: Other (guarded) Suicidal: Ideation (denies) Homicidal: Ideation (denies) Insight/Judgment poor Vitals/IOs Vital Signs Date Time Temp Pulse Resp B/P Pulse Ox O2 Delivery O2 Flow Rate FiO2 10/01/16 18:19 99.3 70 16 103/63 97 Assessment & Plan Problem List: (1) Schizoaffective disorder ICD Code: F25.9 (2) Polysubstance abuse ICD Code: F19.10 Assessment & Plan Continue current tx plan. Estimated LOS: days Justification for Cont. Inpt. risk of decompensation Request HC Surrog/Guard Advoc?: No Problem Qualifiers (1) Schizoaffective disorder: Qualified Code: F25.0 - Schizoaffective disorder, bipolar type Marcy Davis MD Oct 02, 2016 22:18
[2016-10-03 07:37] VITALS: BP 117/77; PULSE 68; RESP 18; TEMP 98.3; O2SAT 99
[2016-10-03] MEDS: QUEtiapine FUMARATE 25 MG TAB PO SCH ×2 (09:00→18:08)
[2016-10-03] MEDS: NICOTINE 21 MG/24 HR PATCH T-DERMAL SCH (09:00)
[2016-10-03] MEDS: SERTRALINE HCL 50 MG TAB PO SCH (09:00)
[2016-10-03] MEDS: DOXYCYCLINE HYCLATE 100 MG TAB PO SCH ×2 (09:00→21:49)
[2016-10-03] MEDS: MUPIROCIN 2% OINT 22 GM TUBE TOPICAL SCH (09:00)
--- NOTE | 2016-10-03 14:40 | HHI.PYPN ---
Subjective Remarks Patient discussed with treatment team, patient seen in his room nurse Dominique, patient continues disheveled, the sad face and some irritability. Today stating "time to go" "not good" implying he wish to go be with his mother. Continues complain about nightmares in auditory hallucinations. When asked about what would help he went through list of benzodiazepines. I told him that that was not appropriate for hallucinations that opiates and benzodiazepines are not the primary choice. That we need to work with his antipsychotic medications none listed off a number of them. He had various reasons why did not want to take any of them. And I refused to order benzodiazepines or opiates even reluctantly agreed to medication adjustments. I will increase at bedtime Seroquel to 200 mg and increased daytime Seroquel to 50 mg 8 AM, 2 PM, 6 PM. I am starting to question if there is a degree of manipulation and perhaps malingering with this management Review of Systems Except as stated in HPI: all other systems reviewed are Neg Objective Alert: Yes [place]: Person, Place, Situation Mood: Other (irritable) Affect: Flat Memory Intact: Comment (no gross deficits) Hallucinations: Auditory (threatening nature), Other (less internal stimulation ) Delusions: No Delusion Type: Other (guarded) Suicidal: Ideation (denies) Homicidal: Ideation (denies) Insight/Judgment Very poor Vitals/IOs Vital Signs Date Time Temp Pulse Resp B/P Pulse Ox O2 Delivery O2 Flow Rate FiO2 10/03/16 07:37 98.3 68 18 117/77 99 Intake and Output 10/02/16 10/02/16 10/03/16 08:00 16:00 00:00 Intake Total 240 ml Balance 240 ml Assessment & Plan Problem List: (1) Schizoaffective disorder ICD Code: F25.9 (2) Polysubstance abuse ICD Code: F19.10 Assessment & Plan Estimated LOS: days patient described increased signs of psychosis see medication adjustment above. Though I question if there may be a degree of manipulation with this Justification for Cont. Inpt. At this time patient decompensate placed in lower level of care Discharge Planning To be determined Request HC Surrog/Guard Advoc?: No Problem Qualifiers (1) Schizoaffective disorder: Qualified Code: F25.0 - Schizoaffective disorder, bipolar type Micheal Montgomery MD Oct 03, 2016 14:40
[2016-10-03 20:07] VITALS: BP 111/70; PULSE 74; RESP 18; TEMP 97.8; O2SAT 96
[2016-10-03] MEDS: REMOVE OLD NICOTINE PATCH T-DERMAL SCH (21:00)
[2016-10-03] MEDS: hydrOXYzine HCL 50 MG TAB PO PRN (21:49)
[2016-10-03] MEDS: QUEtiapine FUMARATE 100 MG TAB PO SCH (21:49)
[2016-10-03] MEDS: diphenhydrAMINE HCL 50 MG CAP PO PRN (21:50)
[2016-10-04 06:29] VITALS: BP 110/59; PULSE 70; RESP 18; TEMP 97.7; O2SAT 97
[2016-10-04] MEDS: QUEtiapine FUMARATE 25 MG TAB PO SCH ×3 (08:00→17:30)
[2016-10-04] MEDS: NICOTINE 21 MG/24 HR PATCH T-DERMAL SCH (08:56)
[2016-10-04] MEDS: SERTRALINE HCL 50 MG TAB PO SCH (08:56)
[2016-10-04] MEDS: QUEtiapine FUMARATE 100 MG TAB PO SCH ×2 (08:58→21:28)
--- NOTE | 2016-10-04 13:11 | HHI.PYPN ---
Subjective Remarks Patient seen in his room before staff, chart reviewed. Patient compliant medications. Patient states he still suicidal B with his mother. Today complains also some anxiety and persistent auditory hallucinations. Patient states [facility] and is questioning whether he should be referred there at this time. 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 He also continues to justify rationalize intellectualize his use of marijuana. And I will continue the medications as prescribed though increasing the Zoloft today to 100 mg daily. Will consider further adjustment of the Seroquel the next 1-2 days Review of Systems Except as stated in HPI: all other systems reviewed are Neg Objective Alert: Yes [place]: Person, Place, Situation Mood: Other (irritable) Affect: Flat Memory Intact: Comment (no gross deficits) Hallucinations: Auditory (threatening nature), Other (less internal stimulation ) Delusions: No Delusion Type: Other (guarded) Suicidal: Ideation (denies) Homicidal: Ideation (denies) Insight/Judgment Poor Vitals/IOs Vital Signs Date Time Temp Pulse Resp B/P Pulse Ox O2 Delivery O2 Flow Rate FiO2 10/04/16 06:29 97.7 70 18 110/59 97 Assessment & Plan Problem List: (1) Schizoaffective disorder ICD Code: F25.9 (2) Polysubstance abuse ICD Code: F19.10 Assessment & Plan Estimated LOS: days patient continues psychotic was somewhat calmer more focused and cooperative today. Though today he is focusing on wanting to be [facility] Justification for Cont. Inpt. At this time patient would decompensate if placed in a lower level of care Discharge Planning To be determined Request HC Surrog/Guard Advoc?: No Problem Qualifiers (1) Schizoaffective disorder: Qualified Code: F25.0 - Schizoaffective disorder, bipolar type Micheal Montgomery MD Oct 04, 2016 13:11
[2016-10-04] MEDS: REMOVE OLD NICOTINE PATCH T-DERMAL SCH (21:00)
[2016-10-04] MEDS: hydrOXYzine HCL 50 MG TAB PO PRN (21:29)
[2016-10-04 23:45] VITALS: BP 98/58; PULSE 69; RESP 17; TEMP 98.3; O2SAT 96
[2016-10-05 06:31] VITALS: BP 118/72; PULSE 76; RESP 18; TEMP 98.7; O2SAT 95
[2016-10-05] MEDS: NICOTINE 21 MG/24 HR PATCH T-DERMAL SCH (09:00)
[2016-10-05] MEDS: SERTRALINE HCL 100 MG TAB PO SCH (09:10)
[2016-10-05] MEDS: QUEtiapine FUMARATE 25 MG TAB PO SCH ×4 (09:11→18:00)
--- NOTE | 2016-10-05 12:13 | HHI.PYPN ---
Subjective Remarks Patient seen in day room with nurse Latoya, patient somewhat happier at this time since he is getting his double portions of food. He still complains of suicidality so continues to isolate. Still continues to see he wishes to be referred to the [facility]. Will increase daytime Seroquel 200 mg 3 times a day Review of Systems Except as stated in HPI: all other systems reviewed are Neg Objective Alert: Yes [place]: Person, Place, Situation Mood: Other (irritable) Affect: Flat Memory Intact: Comment (no gross deficits) Hallucinations: Auditory (threatening nature), Other (less internal stimulation ) Delusions: No Delusion Type: Other (guarded) Suicidal: Ideation (today states he is still suicidal) Homicidal: Ideation (denies) Insight/Judgment Poor Vitals/IOs Vital Signs Date Time Temp Pulse Resp B/P Pulse Ox O2 Delivery O2 Flow Rate FiO2 10/05/16 06:31 98.7 76 18 118/72 95 Assessment & Plan Problem List: (1) Schizoaffective disorder ICD Code: F25.9 (2) Polysubstance abuse ICD Code: F19.10 Assessment & Plan Estimated LOS: days patient continue suicidal, vigilant, though happy with increased medial still remains somewhat irritable. She medication adjustments above Justification for Cont. Inpt. This time patient would compensative placed in a lower level of care patient continues to need medication adjustment and management Discharge Planning To be determined Request HC Surrog/Guard Advoc?: No Problem Qualifiers (1) Schizoaffective disorder: Qualified Code: F25.0 - Schizoaffective disorder, bipolar type Micheal Montgomery MD Oct 05, 2016 12:13
[2016-10-05] MEDS: ALUMINUM/MAGNESIUM/SIMETH 30 ML CUP PO PRN (15:14)
[2016-10-05 18:01] VITALS: BP 119/76; PULSE 72; RESP 18; TEMP 98; O2SAT 98
[2016-10-05] MEDS: QUEtiapine FUMARATE 100 MG TAB PO SCH (20:46)
[2016-10-05] MEDS: REMOVE OLD NICOTINE PATCH T-DERMAL SCH (20:46)
[2016-10-05] MEDS: hydrOXYzine HCL 50 MG TAB PO PRN (20:47)
[2016-10-06 05:58] VITALS: BP_SYST 97; PULSE 70; RESP 17; TEMP 97.6; O2SAT 97
[2016-10-06] MEDS: NICOTINE 21 MG/24 HR PATCH T-DERMAL SCH (08:51)
[2016-10-06] MEDS: SERTRALINE HCL 100 MG TAB PO SCH (08:51)
[2016-10-06] MEDS: QUEtiapine FUMARATE 25 MG TAB PO SCH ×3 (08:53→18:14)
--- NOTE | 2016-10-06 13:34 | HHI.PYPN ---
Subjective Remarks Patient is seen in his room with nurse Mehrdad, chart reviewed. Patient continues to isolate spending much time in his room. Though today he showing some increase affect better eye contact. Stating he would like to be discharged on Sunday 10/08. He does have home to go to when he does follow through with [facility] act. We will speak some more tomorrow and if he is consistent we'll discharge him on Monday Review of Systems Except as stated in HPI: all other systems reviewed are Neg Objective Alert: Yes [place]: Person, Place, Situation Mood: Other (irritable) Affect: Flat Memory Intact: Comment (no gross deficits) Hallucinations: Auditory (threatening nature), Other (less internal stimulation ) Delusions: No Delusion Type: Other (guarded) Suicidal: Ideation (today states he is still suicidal) Homicidal: Ideation (denies) Insight/Judgment Poor Vitals/IOs Vital Signs Date Time Temp Pulse Resp B/P Pulse Ox O2 Delivery O2 Flow Rate FiO2 10/06/16 05:58 97.6 70 17 97/ 97 Assessment & Plan Problem List: (1) Schizoaffective disorder ICD Code: F25.9 (2) Polysubstance abuse ICD Code: F19.10 Assessment & Plan Estimated LOS: days patient showing some decrease in his paranoia and irritability, showing some insight into his behaviors. Now states she would like to discharge on Sunday 10/08 the patient behavior remains stable will do that Justification for Cont. Inpt. These further observation for stability of mood consider discharge 10/08 Discharge Planning See above Request HC Surrog/Guard Advoc?: No Problem Qualifiers (1) Schizoaffective disorder: Qualified Code: F25.0 - Schizoaffective disorder, bipolar type Micheal Montgomery MD Oct 06, 2016 13:34
[2016-10-06] MEDS: ALUMINUM/MAGNESIUM/SIMETH 30 ML CUP PO PRN (14:44)
[2016-10-06] MEDS: QUEtiapine FUMARATE 100 MG TAB PO SCH (20:25)
[2016-10-06] MEDS: REMOVE OLD NICOTINE PATCH T-DERMAL SCH (21:00)
[2016-10-07 05:56] VITALS: BP 110/58; PULSE 65; RESP 16; TEMP 98.3; O2SAT 96
[2016-10-07] MEDS: QUEtiapine FUMARATE 25 MG TAB PO SCH (08:00)
[2016-10-07] MEDS: SERTRALINE HCL 100 MG TAB PO SCH (09:00)
[2016-10-07] MEDS: NICOTINE 21 MG/24 HR PATCH T-DERMAL SCH (09:00)
[2016-10-07] MEDS ORDERED: QUET1TAB8 PO (10:33)
[2016-10-07] MEDS ORDERED: QUET1TAB7 PO (10:33)
[2016-10-07] MEDS ORDERED: ZOLO100T PO (10:33)
[2016-10-07] MEDS ORDERED: HYDR50TA94 PO (10:33)
--- NOTE | 2016-10-07 10:45 | HHI.DS ---
Psychiatry Discharge Summary Inpatient Psychiatric care?: Yes Advance Directive: No Reason Not Provided: Due to Patient Condition Mental Health AdvanceDirective: No Health Care Proxy: No Admission Admission Date Sep 23, 2016 at 19:07 Admission Diagnosis: (1) Schizoaffective disorder ICD Code: F25.9 (2) Polysubstance abuse ICD Code: F19.10 Brief History Patient is a 51 her white male comes here under [place] act by the [employer] dated 09/22/16 at 10:44 PM that document reviewed and agreed with essentially stating that the patient stated he was at a loss of what to do 70 suicidal thoughts. Patient seen screened in ED urine toxicology positive for cocaine and marijuana. Of interest the patient is hospitalized here about one year ago for similar complaints was discharged on Zoloft and Haldol at that time. At the present time patient sitting quietly in the [place] nurse Latoya present throughout session. Patient states is been off his medication perhaps since his last hospitalization. But increased auditory hallucinations of a command nature plan to kill himself. 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 Patient states multiple psychiatric hospitalizations since 13 years old. He has spent extended time a [facility] in the past. He denies any physical or sexual abuse. There is a history of mental illness in his family At the present time patient does meet criteria for involuntary psychiatric hospitalization the [place] act I'll do first opinion requests a second opinion. I do feel he has capacity to make decisions concerning his medication. We'll restart him on his Zoloft to 25 mg daily and is Haldol 10 mg twice a day Tobacco Use In Past 30 Days: 5 or More Cigarettes/Day Alcohol Use: Monthly or Less Hospital Course Patient's initial irritability isolation paranoia slowly resolved with his detoxing off his marijuana and cocaine and compliance with his medications. His initial request was the on license of [facility] also resolved. He has been denying suicidality homicidality voices or visions. His affect has improved his mood has improved. Today he does wish discharge continues to denies suicidality homicidality or voices or visions. Has been compliant with medications. He does have an apartment to return to. He'll follow-up with [facility] also referral to NA Results Blood Pressure 110 / 58 Vital Signs Date Time Temp Pulse Resp B/P Pulse Ox O2 Delivery O2 Flow Rate FiO2 10/07/16 05:56 98.3 65 16 110/58 96 Urine toxicology positive for cocaine and marijuana Summary of Procedures None done Pending results at discharge: No Medications # of Antipsychotic meds at D/C: 1 Approp Antipsych med options 1 - Minimum of three failed multiple trials of monotherapy. 2 - Documented plan to taper to monotherapy due to previous use of multiple meds OR cross-taper in progress at D/C. 3 - Documentation of augmentation of Clozapine. 4 - Justification other than those listed in allowable values 1-3, document here : Discharge Discharge Date: Oct 07, 2016 Discharge Diagnosis: (1) Schizoaffective disorder Diagnosis: Principal ICD Code: F25.9 (2) Polysubstance abuse Diagnosis: Secondary ICD Code: F19.10 Mental Status Exam at Disch Alert oriented somewhat disheveled white male. He is normal active. He is euthymic. Affect has good range and intensity. Speech rate and rhythm within normal limits. No formal thought disorders. No auditory or visual hallucinations no delusions. Insight and judgment is fair. Cognition grossly intact Pt Condition on Discharge: Stable Discharge Disposition: Discharge Home Discharge Instructions Diet Instructions: As Tolerated, No Restrictions Activities you can perform: Regular-No Restrictions Scheduled Appointment: [facility] Appointment Date: Oct 13, 2016 Appointment Time: 7:30am Discharge Time > 30 minutes Discharge/Advance Care Plan Health Problems: (1) Schizoaffective disorder (2) Polysubstance abuse Goals to promote your health * To prevent worsening of your condition and complications * To maintain your health at the optimal level Directions to meet your goals Take your medications as prescribed Follow your dietary instruction Follow activity as directed Keep your appointments as scheduled Take your immunizations and boosters as scheduled If your symptoms worsen call your PCP, if no PCP go to Urgent Care Center or Emergency Room For 09/01 questions related to your inpatient stay or results of tests pending at discharge, please contact Dr. Micheal Montgomery at Smoking is Dangerous to Your Health. Avoid second hand smoking Problem Qualifiers (1) Schizoaffective disorder: Qualified Code: F25.0 - Schizoaffective disorder, bipolar type Micheal Montgomery MD Oct 07, 2016 10:44
== END 2016-10-07 13:10 | disposition home or self-care (01) | DRG 885 ==
LOC: NEDAMB 23:00 → NEDA 09-23 19:07 → H260 09-23 19:20
PROVIDERS: ADMIT Psychiatry & Neurology Psychiatry; ATTEND Psychiatry & Neurology Psychiatry
DX: F25.0 Schizoaffective disorder, bipolar type (principal); K74.60 Unspecified cirrhosis of liver; R45.851 Suicidal ideations; L02.412 Cutaneous abscess of left axilla; L02.413 Cutaneous abscess of right upper limb; F12.90 Cannabis use, unspecified, uncomplicated; F14.10 Cocaine abuse, uncomplicated; J44.9 Chronic obstructive pulmonary disease, unspecified; F17.210 Nicotine dependence, cigarettes, uncomplicated; B95.62 Methicillin resistant Staphylococcus aureus infection as the cause of diseases classified elsewhere; Z91.19 Patient's noncompliance with other medical treatment and regimen; F41.9 Anxiety disorder, unspecified; E78.5 Hyperlipidemia, unspecified; L73.2 Hidradenitis suppurativa
CPT/HCPCS: 80048; 80053; 80061; 80307; 83036; 85025; 86403; 87070; 87147; 87186; 87205; 99285; Q0163

== ENCOUNTER 2016-11-04 16:01 | Emergency (ER) | payer OTHER ==
[~2016-11-04] VITALS: Ht 180.3 cm; Wt 68.1 kg
[~2016-11-04 16:01] MED LIST changes: -BENZ2 PO; -HALO10 PO; +HYDR50TA94 PO; -QUET100 PO; +QUET1TAB7 PO; +QUET1TAB8 PO; -SERT100 PO; -SERT50 PO; +ZOLO100T PO
[2016-11-04 16:03] VITALS: BP 126/86; PULSE 81; RESP 12; TEMP 98.1; O2SAT 97
--- NOTE | 2016-11-04 17:00 | PD ---
HPI Chief Complaint: Psychiatric Symptoms Time Seen by Provider: 17:00 Travel History International Travel<30 days: No Contact w/Intl Traveler<30days: No Traveled to known affect area: No History of Present Illness HPI 51-year-old male presents to the emergency department under Mejia act by local police. Apparently, he requested to be Mejia acted. He states he has been feeling suicidal for approximately 2 days. He states his plan was to get a razor blade and cut his wrists. He states that he is supposed to take psychiatric medications, but has not been taking them. He also reports history of COPD, is not currently any medications. Patient reports tenderness to the right ankle with erythema. He states that he got bit by an insect to his right lateral ankle and the erythema and swelling started after. Patient denies any fevers. No chest pain or shortness of breath. He states he has been Mejia acted in the past. He states the ankle has been hurting him for 2 days as well. Patient admits to cocaine and marijuana abuse. He denies any IVDU. PFSH Past Medical History Arthritis: No Asthma: No Autoimmune Disease: No Blood Disorders: No Bipolar Disorder: Yes Anxiety: Yes Depression: Yes Heart Rhythm Problems: No High Cholesterol: Yes (NON COMPLIANT ON MEDS) Chemotherapy: Yes Chest Pain: No Congestive Heart Failure: No Cirrhosis: Yes COPD: Yes Cerebrovascular Accident: No Diminished Hearing: No Endocrine: No Gastrointestinal Disorders: No Genitourinary: No Hypertension: No Immune Disorder: No Implanted Vascular Access Dvce: No Musculoskeletal: No Neurologic: Yes Respiratory: Yes Immunizations Current: Yes Migraines: No Myocardial Infarction: No Schizophrenia: Yes Sleep Apnea: No Past Surgical History Abdominal Surgery: No Cardiac Surgery: No Ear Surgery: No Endocrine Surgery: No Eye Surgery: No Genitourinary Surgery: No Neurologic Surgery: No Oral Surgery: No Thoracic Surgery: No Tonsillectomy: Yes Other Surgery: Yes (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)) Social History Alcohol Use: Yes (WEEKLY ) Tobacco Use: Yes (1 ppd) Substance Use: Yes Allergies-Medications (Allergen,Severity, Reaction): Coded Allergies: Aspirin (Verified Allergy, Severe, Rash, 09/22/16) Canned Fish (Verified Allergy, Severe, 09/26/16) Codeine (Verified Allergy, Severe, RASH, 09/22/16) Contrast Media (Verified Allergy, Severe, HIVES, 09/22/16) Demerol (Verified Allergy, Severe, RASH, 09/22/16) Motrin (Verified Allergy, Severe, RASH, 09/22/16) Oily Fish (Verified Allergy, Severe, 09/26/16) Penicillin (Verified Allergy, Severe, RASH, 09/22/16) Ha Fish (Verified Allergy, Severe, 09/26/16) White Fish (Verified Allergy, Severe, 09/26/16) Iodine (Unverified Allergy, Intermediate, Rash, 09/22/16) Darvocet-N 100 (Verified Allergy, Unknown, 09/22/16) *MDRO Multi-Drug Resistant Organism (Verified Adverse Reaction, Unknown, ) MRSA (arm wound) - 08/2015 & 09/24/16 Reported Meds & Prescriptions Reported Meds & Active Scripts Active Zoloft (Sertraline HCl) 100 Mg Tab 100 Mg PO DAILY Quetiapine (Quetiapine Fumarate) 25 Mg Tab 50 Mg PO DAILY@08,,18 Quetiapine (Quetiapine Fumarate) 100 Mg Tab 200 Mg PO HS Hydroxyzine HCl 50 Mg Tab 50 Mg PO Q6H PRN Review of Systems Except as stated in HPI: all other systems reviewed are Neg Physical Exam Narrative GENERAL: Well-nourished, well-developed male patient, ambulatory. Afebrile. SKIN: Focused skin assessment warm/dry. Patient has several insect bites to the right lateral ankle with mild erythema. HEAD: Normocephalic. Atraumatic. EYES: No scleral icterus. No injection or drainage. NECK: Supple, trachea midline. No JVD or lymphadenopathy. CARDIOVASCULAR: Regular rate and rhythm without murmurs, gallops, or rubs. RESPIRATORY: Breath sounds equal bilaterally. No accessory muscle use. Lungs sounds are clear to auscultation. GASTROINTESTINAL: Abdomen soft, non-tender, nondistended. MUSCULOSKELETAL: No cyanosis, or edema. Patient has limited active ROM of the right ankle, but has full passive ROM. BACK: Nontender without obvious deformity. No CVA tenderness. Data Data Last Documented VS Vital Signs Date Time Temp Pulse Resp B/P Pulse Ox O2 Delivery O2 Flow Rate FiO2 11/04/16 16:03 98.1 81 12 126/86 97 Orders Complete Blood Count With Diff (11/04/16 16:24) Comprehensive Metabolic Panel (11/04/16 16:24) Psych Screen (11/04/16 16:24) Blood Glucose (11/04/16 16:24) Diet Regular Basic (11/04/16 Dinner) Drug Screen, Random Urine (11/04/16 16:24) Alcohol (Ethanol) (11/04/16 16:25) Ankle, Complete (Mrq1ulr) (11/04/16 ) Sulfamet-Trimeth Ds 800-160 Mg (Bactrim (11/04/16 19:00) Labs Laboratory Tests Test 11/04/16 11/04/16 16:30 17:30 White Blood Count 8.9 TH/MM3 Red Blood Count 4.86 MIL/MM3 Hemoglobin 14.5 GM/DL Hematocrit 43.5 % Mean Corpuscular Volume 89.4 FL Mean Corpuscular Hemoglobin 29.8 PG Mean Corpuscular Hemoglobin 33.4 % Concent Red Cell Distribution Width 13.6 % Platelet Count 243 TH/MM3 Mean Platelet Volume 7.6 FL Neutrophils (%) (Auto) 69.7 % Lymphocytes (%) (Auto) 20.2 % Monocytes (%) (Auto) 7.3 % Eosinophils (%) (Auto) 2.0 % Basophils (%) (Auto) 0.8 % Neutrophils # (Auto) 6.2 TH/MM3 Lymphocytes # (Auto) 1.8 TH/MM3 Monocytes # (Auto) 0.7 TH/MM3 Eosinophils # (Auto) 0.2 TH/MM3 Basophils # (Auto) 0.1 TH/MM3 CBC Comment DIFF FINAL Differential Comment Sodium Level 141 MEQ/L Potassium Level 4.0 MEQ/L Chloride Level 107 MEQ/L Carbon Dioxide Level 27.4 MEQ/L Anion Gap 7 MEQ/L Blood Urea Nitrogen 18 MG/DL Creatinine 1.26 MG/DL Estimat Glomerular Filtration 60 ML/MIN Rate Random Glucose 92 MG/DL Calcium Level 8.9 MG/DL Total Bilirubin 0.3 MG/DL Aspartate Amino Transf 20 U/L (AST/SGOT) Alanine Aminotransferase 19 U/L (ALT/SGPT) Alkaline Phosphatase 106 U/L Total Protein 6.7 GM/DL Albumin 3.4 GM/DL Ethyl Alcohol Level LESS THAN 3 MG/DL Urine Opiates Screen NEG Urine Barbiturates Screen NEG Urine Amphetamines Screen NEG Urine Benzodiazepines Screen NEG Urine Cocaine Screen POS Urine Cannabinoids Screen POS MDM Medical Decision Making Medical Screen Exam Complete: Yes Emergency Medical Condition: Yes Medical Record Reviewed: Yes Interpretation(s) Last Impressions Ankle X-Ray 11/04/16 0000 Signed Impressions: Service Date/Time: Friday, November 04, 2016 17:25 - CONCLUSION: 1. Negative examination of the ankle. Mic Urbina MD Differential Diagnosis depression vs. suicidal ideation vs. polysubstance abuse vs. cellulitis Narrative Course 51 year old male presents to the emergency department for suicidal ideation. He also reports pain to his right ankle. Symptoms are consistent with cellulitis. X-ray of the right ankle is negative. No evidence of septic joint on exam. CBC is unremarkable. CMP is unremarkable. UDS is positive for cocaine and cannabinoids. Alcohol level is less than 3. Patient is given Bactrim DS and will be given a script for home. Patient is medically cleared for psychiatric screening and disposition. Mental health screening discussed with the patient. Psychiatric screen ordered. Diagnosis Primary Impression: Suicidal ideation Additional Impressions: Polysubstance abuse Cellulitis of right ankle Scripts Sulfamethoxazole-Trimethoprim (Bactrim DS)800-160 Mg Tab1 Tab PO BID #20 TAB Ref 0 Prov:Shira Horn 11/04/16 Condition: Stable Shira Horn November 04, 2016 17:00
[2016-11-04 17:08] LABS: AUTOMATED NEUTROPHIL # 6.2 TH/MM3 (1.8-7.7); BASOPHIL # 0.1 TH/MM3 (0-0.2); BASOPHIL % 0.8 % (0.0-2.0); EOSINOPHIL # 0.2 TH/MM3 (0-0.4); HEMATOCRIT 43.5 % (39.0-51.0); HEMO FLAGS DIFF FINAL; LYMPH % 20.2 % (9.0-44.0); LYMPHOCYTE # 1.8 TH/MM3 (1.0-4.8); MEAN CELL VOLUME 89.4 FL (80.0-100.0); MEAN CORPUSCULAR HEMOGLOBIN 29.8 PG (27.0-34.0); MEAN CORPUSCULAR HGB CONC 33.4 % (32.0-36.0); MONO % 7.3 % (0.0-8.0); NEUT % 69.7 % (16.0-70.0); PLATELET COUNT 243 TH/MM3 (150-450); RED BLOOD COUNT 4.86 MIL/MM3 (4.50-5.90); RED CELL DISTRIBUTION WIDTH 13.6 % (11.6-17.2); WHITE BLOOD COUNT 8.9 TH/MM3 (4.0-11.0)
[2016-11-04 17:13] LABS: ALT (GPT) 19 U/L (12-78); ANION GAP 7 MEQ/L (5-15); AST (GOT) 20 U/L (15-37); BICARBONATE 27.4 MEQ/L (21.0-32.0); BLOOD UREA NITROGEN 18 MG/DL (7-18); CHLORIDE 107 MEQ/L (98-107); GLOMERULAR FILTRATION RATE 60 ML/MIN (>89); SODIUM (NA) 141 MEQ/L (136-145)
[2016-11-04 17:15] LABS: ALKALINE PHOSPHATASE 106 U/L (45-117); TOTAL BILIRUBIN ADULT 0.3 MG/DL (0.2-1.0)
--- NOTE | 2016-11-04 17:46 | RADRPT ---
EXAM DATE/TIME: 11/04/2016 17:25 [facility] COMPARISON: No previous studies available for comparison. INDICATIONS : Right ankle pain, swelling for 1 week MEDICAL HISTORY : None. SURGICAL HISTORY : None. ENCOUNTER: Initial ACUITY: 1 week PAIN SCORE: 10/10 LOCATION: Right lateral ankle FINDINGS: Three view exam was performed of the right ankle. The bony structures are in normal alignment. No e vidence of fracture, dislocation, or soft tissue swelling. The ankle mortise is intact. No radiopaq ue foreign bodies are seen. Bony mineralization is normal. CONCLUSION: 1. Negative examination of the ankle. Mic Urbina MD on November 04, 2016 at 17:44 Board Certified Radiologist. This report was verified electronically.
[2016-11-04 18:28] LABS: AMPHETAMINE, URINE NEG (NEG); BARBITURATES, URINE NEG (NEG); COCAINE, URINE POS (NEG)
[2016-11-04] MEDS ORDERED: BACT800T5 PO (18:58)
[2016-11-04] MEDS ORDERED: SULFAMETHOXAZOLE-TRIMETHOPRIM DS 800-160 MG TAB PO ONE (19:00)
[2016-11-04 19:15] VITALS: BP 127/85; PULSE 73; RESP 18; TEMP 97.3; O2SAT 99
[2016-11-04] MEDS ORDERED: ACETAMINOPHEN 325 MG TAB PO ONE (19:45)
[2016-11-04 22:55] VITALS: BP 113/60; PULSE 61; RESP 16; O2SAT 96
[2016-11-05 02:24] VITALS: BP 95/50; PULSE 54; RESP 16; O2SAT 98
[2016-11-05 06:09] VITALS: BP 113/68; PULSE 54; RESP 16; O2SAT 97
[2016-11-05] MEDS ORDERED: SULFAMETHOXAZOLE-TRIMETHOPRIM DS 800-160 MG TAB PO ONE (10:30)
[2016-11-05 11:05] VITALS: BP 112/64; PULSE 68; RESP 18
== END 2016-11-05 12:10 | disposition home or self-care (01) ==
LOC: NEDAMB 16:01 → NEPJ 11-05 12:10
DX: R45.851 Suicidal ideations (principal); F19.10 Other psychoactive substance abuse, uncomplicated; L03.115 Cellulitis of right lower limb
CPT/HCPCS: 73610; 80053; 80307; 85025; 99285

== ENCOUNTER 2016-11-20 09:36 | Emergency (ER) | payer OTHER ==
[~2016-11-20] VITALS: Ht 180.3 cm; Wt 68.0 kg
[~2016-11-20 09:36] MED LIST changes: +BACT800T5 PO
[2016-11-20 09:58] VITALS: BP 103/64; PULSE 67; RESP 16; TEMP 98.6; O2SAT 100
[2016-11-20 10:22] LABS: AUTOMATED NEUTROPHIL # 5.4 TH/MM3 (1.8-7.7); BASOPHIL % 0.4 % (0.0-2.0); EOSINOPHIL # 0.1 TH/MM3 (0-0.4); EOSINOPHIL % 1.2 % (0.0-4.0); HEMATOCRIT 44.4 % (39.0-51.0); HEMO FLAGS DIFF FINAL; LYMPHOCYTE # 1.6 TH/MM3 (1.0-4.8); MEAN CELL VOLUME 88.3 FL (80.0-100.0); MEAN CORPUSCULAR HEMOGLOBIN 30.5 PG (27.0-34.0); MEAN CORPUSCULAR HGB CONC 34.5 % (32.0-36.0); MONO % 7.4 % (0.0-8.0); PLATELET COUNT 244 TH/MM3 (150-450); RED BLOOD COUNT 5.02 MIL/MM3 (4.50-5.90); RED CELL DISTRIBUTION WIDTH 13.6 % (11.6-17.2); WHITE BLOOD COUNT 7.8 TH/MM3 (4.0-11.0)
[2016-11-20 10:36] LABS: ANION GAP 8 MEQ/L (5-15); AST (GOT) 21 U/L (15-37); BICARBONATE 25.9 MEQ/L (21.0-32.0); BLOOD UREA NITROGEN 16 MG/DL (7-18); CHLORIDE 104 MEQ/L (98-107); GLOMERULAR FILTRATION RATE 100 ML/MIN (>89); POTASSIUM 3.3 MEQ/L (3.5-5.1); SODIUM (NA) 138 MEQ/L (136-145)
[2016-11-20 10:37] LABS: ACETAMINOPHEN LESS THAN 2.0 MCG/ML (10.0-30.0); ALT (GPT) 21 U/L (12-78)
[2016-11-20 10:39] LABS: ALKALINE PHOSPHATASE 91 U/L (45-117); TOTAL BILIRUBIN ADULT 0.5 MG/DL (0.2-1.0)
--- NOTE | 2016-11-20 11:11 | PD ---
HPI Chief Complaint: Psychiatric Symptoms Time Seen by Provider: 10:10 Travel History International Travel<30 days: No Contact w/Intl Traveler<30days: No Traveled to known affect area: No History of Present Illness HPI Patient is a 51-year-old male who presents to emergency room with complaints of suicidal evaluations. Reports that he is depressed, reports that he can't find a job, reports that he feels that he has nothing to live for and gives up. Patient reports that he was walking today and took a razor blade and his wrist. Patient reports that a bystander called EMS for help. Patient reports that he does use drugs, reports that he smoked crack yesterday. PFSH Past Medical History Arthritis: No Asthma: No Autoimmune Disease: No Blood Disorders: No Bipolar Disorder: Yes Anxiety: Yes Depression: Yes Heart Rhythm Problems: No High Cholesterol: Yes (NON COMPLIANT ON MEDS) Chemotherapy: Yes (IN THE PAST) Chest Pain: No Congestive Heart Failure: No Cirrhosis: Yes COPD: Yes Cerebrovascular Accident: No Diabetes: No (PT STATED "NO") Diminished Hearing: No Endocrine: No Gastrointestinal Disorders: No Genitourinary: No Hypertension: No Immune Disorder: No Implanted Vascular Access Dvce: No Musculoskeletal: No Neurologic: Yes Respiratory: Yes (COPD) Immunizations Current: Yes Migraines: No Myocardial Infarction: No Schizophrenia: Yes Seizures: No Sleep Apnea: No Past Surgical History Abdominal Surgery: No Cardiac Surgery: No Ear Surgery: No Endocrine Surgery: No Eye Surgery: No Genitourinary Surgery: No Neurologic Surgery: No Oral Surgery: No Thoracic Surgery: No Tonsillectomy: Yes Other Surgery: Yes (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)) Social History Alcohol Use: Yes Tobacco Use: Yes Substance Use: Yes ("Crack") Allergies-Medications (Allergen,Severity, Reaction): Coded Allergies: Aspirin (Verified Allergy, Severe, Rash, 09/22/16) Canned Fish (Verified Allergy, Severe, 09/26/16) Codeine (Verified Allergy, Severe, RASH, 09/22/16) Contrast Media (Verified Allergy, Severe, HIVES, 09/22/16) Demerol (Verified Allergy, Severe, RASH, 09/22/16) Motrin (Verified Allergy, Severe, RASH, 09/22/16) Oily Fish (Verified Allergy, Severe, 09/26/16) Penicillin (Verified Allergy, Severe, RASH, 09/22/16) [place] Fish (Verified Allergy, Severe, 09/26/16) White Fish (Verified Allergy, Severe, 09/26/16) Iodine (Unverified Allergy, Intermediate, Rash, 09/22/16) Darvocet-N 100 (Verified Allergy, Unknown, 09/22/16) *MDRO Multi-Drug Resistant Organism (Verified Adverse Reaction, Unknown, ) MRSA (arm wound) - 08/2015 & 09/24/16 Reported Meds & Prescriptions Reported Meds & Active Scripts Active Bactrim DS (Sulfamethoxazole-Trimethoprim) 800-160 Mg Tab 1 Tab PO BID Zoloft (Sertraline HCl) 100 Mg Tab 100 Mg PO DAILY Quetiapine (Quetiapine Fumarate) 25 Mg Tab 50 Mg PO DAILY@08,,18 Quetiapine (Quetiapine Fumarate) 100 Mg Tab 200 Mg PO HS Hydroxyzine HCl 50 Mg Tab 50 Mg PO Q6H PRN Review of Systems General / Constitutional: No: Fever Eyes: No: Visual changes HENT: No: Headaches Cardiovascular: No: Chest Pain or Discomfort Respiratory: No: Shortness of Breath Gastrointestinal: No: Abdominal Pain Genitourinary: No: Dysuria Musculoskeletal: No: Pain Skin: No Rash Neurologic: No: Weakness Psychiatric: Positive: Depression, Suicidal Ideations Endocrine: No: Polydipsia Hematologic/Lymphatic: No: Easy Bruising Physical Exam Narrative GENERAL: nad, nontoxic SKIN: Focused skin assessment warm/dry. HEAD: Atraumatic. Normocephalic. EYES: Pupils equal and round. No scleral icterus. No injection or drainage. ENT: No nasal bleeding or discharge. Mucous membranes pink and moist. NECK: Trachea midline. No JVD. CARDIOVASCULAR: Regular rate and rhythm. No murmur appreciated. RESPIRATORY: No accessory muscle use. Clear to auscultation. Breath sounds equal bilaterally. GASTROINTESTINAL: Abdomen soft, non-tender, nondistended. Hepatic and splenic margins not palpable. MUSCULOSKELETAL: No obvious deformities. No clubbing. No cyanosis. No edema. Superficial abrasion to her left wrist NEUROLOGICAL: Awake and alert. No obvious cranial nerve deficits. Motor grossly within normal limits. Normal speech. PSYCHIATRIC: Depressed, suicidal idealizations Data Data Last Documented VS Vital Signs Date Time Temp Pulse Resp B/P Pulse Ox O2 Delivery O2 Flow Rate FiO2 11/20/16 09:58 98.6 67 16 103/64 100 Orders Complete Blood Count With Diff (11/20/16 09:58) Comprehensive Metabolic Panel (11/20/16 09:58) Psych Screen (11/20/16 09:58) Drug Screen, Random Urine (11/20/16 09:58) Alcohol (Ethanol) (11/20/16 09:58) Salicylates (Aspirin) (11/20/16 09:58) Tylenol (Acetaminophen) (11/20/16 09:58) Labs Laboratory Tests Test 11/20/16 10:00 White Blood Count 7.8 TH/MM3 Red Blood Count 5.02 MIL/MM3 Hemoglobin 15.3 GM/DL Hematocrit 44.4 % Mean Corpuscular Volume 88.3 FL Mean Corpuscular Hemoglobin 30.5 PG Mean Corpuscular Hemoglobin 34.5 % Concent Red Cell Distribution Width 13.6 % Platelet Count 244 TH/MM3 Mean Platelet Volume 7.3 FL Neutrophils (%) (Auto) 70.0 % Lymphocytes (%) (Auto) 21.0 % Monocytes (%) (Auto) 7.4 % Eosinophils (%) (Auto) 1.2 % Basophils (%) (Auto) 0.4 % Neutrophils # (Auto) 5.4 TH/MM3 Lymphocytes # (Auto) 1.6 TH/MM3 Monocytes # (Auto) 0.6 TH/MM3 Eosinophils # (Auto) 0.1 TH/MM3 Basophils # (Auto) 0.0 TH/MM3 CBC Comment DIFF FINAL Differential Comment Sodium Level 138 MEQ/L Potassium Level 3.3 MEQ/L Chloride Level 104 MEQ/L Carbon Dioxide Level 25.9 MEQ/L Anion Gap 8 MEQ/L Blood Urea Nitrogen 16 MG/DL Creatinine 0.81 MG/DL Estimat Glomerular Filtration 100 ML/MIN Rate Random Glucose 118 MG/DL Calcium Level 8.8 MG/DL Total Bilirubin 0.5 MG/DL Aspartate Amino Transf 21 U/L (AST/SGOT) Alanine Aminotransferase 21 U/L (ALT/SGPT) Alkaline Phosphatase 91 U/L Total Protein 6.3 GM/DL Albumin 3.5 GM/DL Salicylates Level 2.4 MG/DL Acetaminophen Level LESS THAN 2.0 MCG/ML Ethyl Alcohol Level LESS THAN 3 MG/DL MDM Medical Decision Making Medical Screen Exam Complete: Yes Emergency Medical Condition: Yes Interpretation(s) Vital Signs Date Time Temp Pulse Resp B/P Pulse Ox O2 Delivery O2 Flow Rate FiO2 11/20/16 09:58 98.6 67 16 103/64 100 Differential Diagnosis Suicide idealation, drug abuse, depression Narrative Course Patient is a 51-year-old male who presents to emergency room with complaints of suicidal ideations. Patient reports that he tried to slit his wrists today attempt to commit suicide. Patient does have superficial abrasions to his left wrist, he did use crack yesterday. He contracts for safety at this time. Latoya Bal DO Nov 20, 2016 11:11
[2016-11-20] MEDS ORDERED: POTASSIUM CHLORIDE 25 MEQ EFFERVESCENT TAB PO ONE (11:15)
[2016-11-20 13:05] LABS: AMPHETAMINE, URINE NEG (NEG); BARBITURATES, URINE NEG (NEG); COCAINE, URINE POS (NEG)
[2016-11-20 13:17] VITALS: BP 110/68; PULSE 83; RESP 19; TEMP 98.5; O2SAT 98
[2016-11-20 14:00] VITALS: BP 115/56; PULSE 60; RESP 17; TEMP 98.4
[2016-11-20 18:00] VITALS: BP 102/57; PULSE 75; RESP 19; TEMP 98.4
[2016-11-20 22:00] VITALS: BP 107/68; PULSE 71
[2016-11-21 01:50] VITALS: BP 104/55; PULSE 53; RESP 18
[2016-11-21 06:03] VITALS: BP 112/69; PULSE 58; RESP 18
[2016-11-21 11:10] VITALS: BP 120/59; PULSE 60; RESP 18; O2SAT 98
--- NOTE | 2016-11-21 13:14 | PD ---
History of Present Illness Chief Complaint: Psychiatric Symptoms Time Seen by Provider: 13:00 Travel History International Travel<30 Days: No Contact w/Intl Traveler<30days: No Known affected area: No Legal Status Legal Status: Mejia Act Mejia Act Signed By: Jamison Orourke History of Present Illness: This is a 51-year-old male who has been seen and treated here at [facility] as well as [facility] for a number of years. He has received various diagnoses including schizophrenia, schizoaffective disorder, bipolar disorder, etc. He complains that he hears voices telling him to harm himself. However, this physician reviewed the patient's record and determined the patient is homeless and repeatedly comes in to the emergency department positive for cocaine use. He has also been positive for use of other drugs. This physician does not find the patient to be responding to internal stimuli or to demonstrate significant symptoms of any type of psychotic illness or bipolar disorder. This physician's impression is that Is homeless, abusing drugs and quite manipulative. When he was informed this physician feels his primary problem is drug abuse and that he needs to go to [facility] for treatment, the patient threatened to raymundo this physician. When he was informed that it was his right to pursue legal action, the patient then threatened to cut himself he per in order to convince this physician that he was serious. Once again, this behavior indicates a strong sense of manipulativeness and malingering. In this physician's opinion, it would be counter therapeutic to admit the patient under the circumstances. PFSH Past Medical History Arthritis: No Asthma: No Autoimmune Disease: No Blood Disorders: No Bipolar Disorder: Yes Anxiety: Yes Depression: Yes Heart Rhythm Problems: No High Cholesterol: Yes (NON COMPLIANT ON MEDS) Chemotherapy: Yes (IN THE PAST) Chest Pain: No Congestive Heart Failure: No Cirrhosis: Yes COPD: Yes Cerebrovascular Accident: No Diabetes: No (PT STATED "NO") Diminished Hearing: No Endocrine: No Gastrointestinal Disorders: No Genitourinary: No Hypertension: No Immune Disorder: No Implanted Vascular Access Dvce: No Musculoskeletal: No Neurologic: Yes Respiratory: Yes (COPD) Immunizations Current: Yes Migraines: No Myocardial Infarction: No Schizophrenia: Yes Seizures: No Sleep Apnea: No Past Surgical History Abdominal Surgery: No Cardiac Surgery: No Ear Surgery: No Endocrine Surgery: No Eye Surgery: No Genitourinary Surgery: No Neurologic Surgery: No Oral Surgery: No Thoracic Surgery: No Tonsillectomy: Yes Other Surgery: Yes (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 Multiple and different diagnoses were given. This physician does not find the patient to be suffering from a major mental illness such that he is experiencing either psychosis or a significant change in mood. History of Inpatient Treatment: Yes Guns or firearms in home: No Social History Hx Alcohol Use: Yes Hx Tobacco Use: Yes Hx Substance Use: Yes Substance Use Type: Alcohol, Crack, Marijuana Other Substances Used: DAILY MARIJUANA, FREQUENT CRACK AND BEER Hx of Substance Use Treatment: Yes Allergies-Medications (Allergen,Severity, Reaction): Coded Allergies: Aspirin (Verified Allergy, Severe, Rash, 09/22/16) Canned Fish (Verified Allergy, Severe, 09/26/16) Codeine (Verified Allergy, Severe, RASH, 09/22/16) Contrast Media (Verified Allergy, Severe, HIVES, 09/22/16) Demerol (Verified Allergy, Severe, RASH, 09/22/16) Motrin (Verified Allergy, Severe, RASH, 09/22/16) Oily Fish (Verified Allergy, Severe, 09/26/16) Penicillin (Verified Allergy, Severe, RASH, 09/22/16) Ha Fish (Verified Allergy, Severe, 09/26/16) White Fish (Verified Allergy, Severe, 09/26/16) Iodine (Unverified Allergy, Intermediate, Rash, 09/22/16) Darvocet-N 100 (Verified Allergy, Unknown, 09/22/16) *MDRO Multi-Drug Resistant Organism (Verified Adverse Reaction, Unknown, ) MRSA (arm wound) - 08/2015 & 09/24/16 Reported Meds & Prescriptions Reported Meds & Active Scripts Active Bactrim DS (Sulfamethoxazole-Trimethoprim) 800-160 Mg Tab 1 Tab PO BID Zoloft (Sertraline HCl) 100 Mg Tab 100 Mg PO DAILY Quetiapine (Quetiapine Fumarate) 25 Mg Tab 50 Mg PO DAILY@08,14,18 Quetiapine (Quetiapine Fumarate) 100 Mg Tab 200 Mg PO HS Hydroxyzine HCl 50 Mg Tab 50 Mg PO Q6H PRN Exam Alert: Yes Moore: Person, Place, Date, Situation Mood: Calm Affect: Appropriate Speech: Clear Eye Contact: Indirect Memory Intact: Immediate, Recent, Remote Suicidal: Plan, Ideation Insight/Judgement Adequate but the patient continues to use drugs over an extended period of time. He was referred to [facility] for detox and rehabilitation. [facility] Medical Decision Making Medical Record Reviewed: Yes Assessment/Plan Patient's Mejia act is being lifted and he is being discharged. Again, this physician finds the patient to be highly manipulative and even malingering to obtain a hospital bed, food, etc. Patient has repeatedly been hospitalized for multiple diagnoses that this physician does not feel match his current presentation. Additionally, the patient has presented himself with recent drug abuse on multiple occasions. Therefore, despite the risk that the patient may act out and harm himself, this physician feels there is no appropriate alternative but to discharge the patient. It would be counter therapeutic to give into his manipulative behavior and enable him to continue it with the current degree of drug abuse. Orders Diet Heart Healthy (11/21/16 Breakfast) Diet Regular Basic (11/21/16 Lunch) Results Vital Signs Date Time Temp Pulse Resp B/P Pulse Ox O2 Delivery O2 Flow Rate FiO2 11/21/16 11:10 60 18 120/59 98 Room Air 11/21/16 06:03 58 18 112/69 11/21/16 01:50 53 18 104/55 11/20/16 22:00 71 107/68 Room Air 11/20/16 18:00 98.4 75 19 102/57 Room Air 11/20/16 14:00 98.4 60 17 115/56 Room Air 11/20/16 13:17 98.5 83 19 110/68 98 Room Air Diagnosis Primary Impression: Cocaine abuse Referrals: [facility] (Out patient) call for appointment Departure Forms: Tests/Procedures Patient Instructions: General Instructions, Mood Disorders (ED) Disposition: 01 DISCHARGE HOME Blue Orozco MD Nov 21, 2016 13:14
== END 2016-11-21 13:49 | disposition home or self-care (01) ==
LOC: NEDAMB 09:36 → NEPJ 11-21 13:49
DX: S60.812A Abrasion of left wrist, initial encounter (principal); F14.10 Cocaine abuse, uncomplicated; E78.00 Pure hypercholesterolemia, unspecified; K74.60 Unspecified cirrhosis of liver; J44.9 Chronic obstructive pulmonary disease, unspecified; Z72.0 Tobacco use; X78.8XXA Intentional self-harm by other sharp object, initial encounter; Y93.9 Activity, unspecified; Y92.9 Unspecified place or not applicable; Y99.8 Other external cause status
CPT/HCPCS: 80053; 80307; 85025; 99284